=== PATIENT | female | born 1965 | race Caucasian/White ===

== ENCOUNTER 2016-12-19 15:38 | Observation (INO) ==
--- NOTE | 2016-12-19 15:51 | Emergency Department Note ---
Disposition Clinical Impression: Chest pain Disposition: Admitted As Inpatient General Adult HPI - General Chief complaint: ED Chest Pain Stated complaint: CP Time Seen by Provider: 12/19/16 15:48 Source: patient Limitations: no limitations - History of Present Illness Pain Scale: 10 - Related Data Home Medications Medication Instructions Recorded Confirmed Albuterol Sulfate [Proair Hfa] 2 puff IH Q4H PRN 12/19/16 12/19/16 Aspirin Enteric Coated [Aspirin EC] 81 mg PO DAILY 12/19/16 12/19/16 Fexofenadine HCl [Allergy Relief] 180 mg PO DAILY 12/19/16 12/19/16 Fluticasone Propionate Nasal 50 mcg NS DAILY 12/19/16 12/19/16 [Flonase] Fluticasone/Salmeterol [Advair Hfa 2 puff IH BID 12/19/16 12/19/16 230-21 Mcg Inhaler] Ipratropium/Albuterol Neb [Duoneb] 3 ml IH QID PRN 12/19/16 12/19/16 Montelukast [Singulair] 10 mg PO HS 12/19/16 12/19/16 Tiotropium [Spiriva] 18 mcg IH DAILY 12/19/16 12/19/16 Allergies Allergy/AdvReac Type Severity Reaction Status Date / Time No Known Allergies Allergy Verified 12/19/16 15:40 Past Medical History - Past Medical History Medical history: Reports: asthma - Social History Smoking Status: Never smoker Smokeless Tobacco Status: No Alcohol use: Reports: none Drug use: Reports: none Physical Exam - General Limitations: no limitations General appearance: alert, in no apparent distress Course Vital Signs Temperature 97.8 F 12/19/16 15:41 Pulse Rate 98 12/19/16 15:41 Respiratory Rate 18 12/19/16 15:41 Blood Pressure 131/88 12/19/16 15:41 O2 Sat by Pulse Oximetry 96 12/19/16 15:41 Temperature 97.9 F 12/21/16 04:54 Pulse Rate 89 12/21/16 04:54 Respiratory Rate 12 12/21/16 04:54 Blood Pressure 104/67 12/21/16 04:54 O2 Sat by Pulse Oximetry 96 12/21/16 04:54 Oxygen Delivery Oxygen Delivery Room Air Medical Decision Making - Lab Data Result diagrams: 12/20/16 03:37 12/20/16 03:37 Lab Results 12/19/16 12/19/16 12/19/16 Range/Units 16:05 16:05 16:05 WBC 7.3 (4.3-11.1) K/mcL RBC 5.40 H (3.82-4.97) M/mcL Hgb 14.4 (11.5-15.4) g/dL Hct 45.4 H (35.3-44.9) % MCV 84.1 (83.0-100.0) fL MCH 26.7 L (28.0-33.3) pg MCHC 31.7 (31.6-35.5) g/dL RDW 14.9 H (11.5-14.5) % Plt Count 543 H (140-400) K/mcL MPV 8.4 L (9.4-12.4) fL Immature Gran % 0.1 (0-4) % Seg Neutrophils % 59.7 % Lymphocytes % 28.5 % Monocytes % 7.9 % Eosinophils % 2.7 % Basophils % 1.1 % Neutrophils # 4.4 (1.6-8.9) K/mcL Lymphocytes # 2.1 (0.6-4.6) K/mcL Monocytes # 0.6 (0.0-1.3) K/mcL Eosinophils # 0.2 (0.0-0.6) K/mcL Basophils # 0.1 (0.0-0.2) K/mcL D-Dimer (0-500) ng/mLFEU Sodium 137 (136-145) mEq/L Potassium 3.3 L (3.5-4.5) mEq/L Chloride 102 (98-109) mEq/L Carbon Dioxide 25 (19-29) mEq/L BUN 11 (7-20) mg/dL Creatinine 0.83 (0.57-1.11) mg/dL Est GFR ( Amer) > 60 (> 60) Est GFR (Non-Af Amer) > 60 (> 60) BUN/Creatinine Ratio 13 (6-26) Glucose 147 H (70-99) mg/dL Calculated Osmolality 286 (280-300) Calcium 9.4 (8.6-10.8) mg/dL Troponin I 0.00 (0-0.03) ng/mL 12/19/16 Range/Units 17:35 WBC (4.3-11.1) K/mcL RBC (3.82-4.97) M/mcL Hgb (11.5-15.4) g/dL Hct (35.3-44.9) % MCV (83.0-100.0) fL MCH (28.0-33.3) pg MCHC (31.6-35.5) g/dL RDW (11.5-14.5) % Plt Count (140-400) K/mcL MPV (9.4-12.4) fL Immature Gran % (0-4) % Seg Neutrophils % % Lymphocytes % % Monocytes % % Eosinophils % % Basophils % % Neutrophils # (1.6-8.9) K/mcL Lymphocytes # (0.6-4.6) K/mcL Monocytes # (0.0-1.3) K/mcL Eosinophils # (0.0-0.6) K/mcL Basophils # (0.0-0.2) K/mcL D-Dimer 356 (0-500) ng/mLFEU Sodium (136-145) mEq/L Potassium (3.5-4.5) mEq/L Chloride (98-109) mEq/L Carbon Dioxide (19-29) mEq/L BUN (7-20) mg/dL Creatinine (0.57-1.11) mg/dL Est GFR ( Amer) (> 60) Est GFR (Non-Af Amer) (> 60) BUN/Creatinine Ratio (6-26) Glucose (70-99) mg/dL Calculated Osmolality (280-300) Calcium (8.6-10.8) mg/dL Troponin I (0-0.03) ng/mL Attestation Statement - Attestation Attestation: I examined this patient and my medical decision-making was reviewed with the [employer]/PA/Advanced Practice Nurse/Resident Physician. I agree with the documented findings, disposition and treatment plan as described except to the extent set forth below. [id number] time provided in conjunction with Dr. Tanner, resident physician Patient complains of chest discomfort and dyspnea. Symptoms started after exposure to an hospital cleaning material. She has a history of reactive airway disease. Is teary and anxious at the time of my exam
[2016-12-19] MEDS ORDERED: Nitroglycerin 0.4 MG TAB.SUBL SL ONE (15:52)
[2016-12-19] MEDS ORDERED: Aspirin 81 MG TAB.CHEW PO ONE (15:52)
[2016-12-19] MEDS ORDERED: Ipratropium/Albuterol Neb 3 ML IH ONE (15:56)
--- NOTE | 2016-12-19 15:59 | Emergency Department Note ---
Disposition Clinical Impression: Chest pain Qualifiers: Chest pain type: unspecified Qualified Code(s): R07.9 - Chest pain, unspecified Disposition: Admitted As Inpatient Referrals: Mikayla Curran CNP [Primary Care Provider] - Forms: ED Satisfaction Letter Time of Disposition: 17:58 General Adult HPI - General Chief complaint: ED Chest Pain Stated complaint: CP Time Seen by Provider: 12/19/16 15:48 Source: patient Limitations: no limitations Nursing Notes Reviewed: Yes Vital Signs Reviewed: Yes - History of Present Illness HPI Narrative: Female patient with a history of reactive airway disease was in her mother's room upstairs and gotten cleaning with bleach. She states she started having shortness of breath and coughing. She has also has associated left-sided chest pain. States she has never had chest pain with her asthma attacks before. She describes the pain as a sudden onset left-sided chest radiates up her left neck and down to her left arm. She has no cardiac history and has had a cardiac workup several years ago. She denies nausea associate with this. She is comes the pain as an ache. Pain Scale: 10 - Related Data Home Medications Medication Instructions Recorded Confirmed Albuterol Sulfate [Proair Hfa] 2 puff IH Q4H PRN 12/19/16 12/19/16 Aspirin Enteric Coated [Aspirin EC] 81 mg PO DAILY 12/19/16 12/19/16 Fexofenadine HCl [Allergy Relief] 180 mg PO DAILY 12/19/16 12/19/16 Fluticasone Propionate Nasal 50 mcg NS DAILY 12/19/16 12/19/16 [Flonase] Fluticasone/Salmeterol [Advair Hfa 2 puff IH BID 12/19/16 12/19/16 230-21 Mcg Inhaler] Ipratropium/Albuterol Neb [Duoneb] 3 ml IH QID PRN 12/19/16 12/19/16 Montelukast [Singulair] 10 mg PO HS 12/19/16 12/19/16 Tiotropium [Spiriva] 18 mcg IH DAILY 12/19/16 12/19/16 Allergies Allergy/AdvReac Type Severity Reaction Status Date / Time No Known Allergies Allergy Verified 12/19/16 15:40 All systems ED: reviewed and negative except as stated. Constitutional: Denies: fever, chills Cardiovascular: Reports: chest pain. Denies: palpitations, edema, syncope Respiratory: Reports: cough, dyspnea, wheezes Gastrointestinal: Denies: abdominal pain, nausea, vomiting, diarrhea Genitourinary: Denies: urgency, dysuria, frequency, hematuria Musculoskeletal: Denies: back pain, neck pain Integumentary: Denies: rash, abrasion Neurological: Denies: headache, weakness Past Medical History - Past Medical History Medical history: Reports: asthma - Social History Smoking Status: Never smoker Smokeless Tobacco Status: No Alcohol use: Reports: none Drug use: Reports: none Physical Exam - General Limitations: no limitations General appearance: alert, in distress (Clutching her chest and coughing) - Head Head exam: atraumatic, normocephalic - Eye Eye exam: Present: normal appearance, PERRL, EOMI - ENT ENT exam: normal exam, normal oropharynx, mucous membranes moist - Neck Neck exam: Present: normal inspection, full ROM, trachea midline - Chest Chest inspection: Present: normal inspection, symmetric chest wall rise - Respiratory Respiratory exam: Present: respiratory distress, wheezes (diffusly), accessory muscle use - Cardiovascular Cardiovascular exam: Present: regular rate, normal rhythm, normal heart sounds - Abdominal Exam Abdominal exam: Present: soft, Non-Tender, normal bowel sounds - Extremities Exam Extremities exam: Present: normal inspection, full ROM, normal capillary refill. Absent: tenderness, pedal edema - Back Exam Back exam: Present: normal inspection, full ROM. Absent: tenderness - Neurological Exam Neurological exam: Present: alert, oriented X3 - Psychiatric Psychiatric exam: Present: normal affect, normal mood - Skin Skin exam: Present: warm, dry, intact, normal color. Absent: cyanosis, diaphoresis Course Course Narrative: Female patient presenting to the emergency department in a wheelchair. She states she was upstairs visiting her mother when they clean the room with the bleach substances. She states is aggravated her reactive airway disease and cause her to start coughing and had shortness of breath. He eats that she then started having chest pain. She said she has never had chest pain with her asthma attacks before. She attempted to use her albuterol inhalers with no relief. His scrubs the pain as a pain in the left side of her chest that radiates up into her neck and down into her left arm. She has no previous cardiac history. She did have a cardiac workup several years ago. Patient appears in moderate respiratory distress at this time and is coughing. She is also holding her chest at this time. We will do a cardiac workup and give the patient a DuoNeb and reassess. - Reevaluation(s) Reevaluation #1: Patient getting her breathing treatment at this time. She states that the nitroglycerin did ease her chest pain some. She describes an [employer] a heaviness and a funny feeling. We will provide her with more pain medication at this time. Time: 16:29 Reevaluation #2: Pt resting in bed at this time. He does not appear in any distress but is still holding the left side of her chest. She states her breathing difficulty has eased at this time however she states that she is still having chest pain in the left side of her chest. SHe is refusing Additional pain medication that has been offered. Discussed with her that her lab work is unremarkable at this time that we will need an additional in 3 hours. She is requesting admission for cardiac workup. I feel this is reasonable. She used to be a smoker and has a cardiac history in her family however she has never had a cardiac event before. Time: 17:17 Reevaluation #3: Patient's d-dimer is negative. We will admit patient. Time: 17:50 - Consultations Consultation #1: Spoke with Dr Keenan the hospitalist. She is requesting the Pt be worked up for a PE prior to admission. Time: 17:34 Consultation #2: Dr Keenan accepted Pt in stable condition. Time: 17:56 Vital Signs Temperature 97.8 F 12/19/16 15:41 Pulse Rate 98 12/19/16 15:41 Respiratory Rate 18 12/19/16 15:41 Blood Pressure 131/88 12/19/16 15:41 O2 Sat by Pulse Oximetry 96 12/19/16 15:41 Temperature 97.8 F 12/19/16 15:41 Pulse Rate 96 12/19/16 16:53 Respiratory Rate 14 12/19/16 16:53 Blood Pressure 110/76 12/19/16 16:53 O2 Sat by Pulse Oximetry 94 12/19/16 16:53 Oxygen Delivery Oxygen Delivery Room Air Medical Decision Making - Medical Records Medical records reviewed: Yes I reviewed the patient's medical records. - Lab Data Lab results reviewed: Yes I reviewed the patient's lab results. Result diagrams: 12/19/16 16:05 12/19/16 16:05 Lab Results 12/19/16 12/19/16 12/19/16 Range/Units 16:05 16:05 16:05 WBC 7.3 (4.3-11.1) K/mcL RBC 5.40 H (3.82-4.97) M/mcL Hgb 14.4 (11.5-15.4) g/dL Hct 45.4 H (35.3-44.9) % MCV 84.1 (83.0-100.0) fL MCH 26.7 L (28.0-33.3) pg MCHC 31.7 (31.6-35.5) g/dL RDW 14.9 H (11.5-14.5) % Plt Count 543 H (140-400) K/mcL MPV 8.4 L (9.4-12.4) fL Immature Gran % 0.1 (0-4) % Seg Neutrophils % 59.7 % Lymphocytes % 28.5 % Monocytes % 7.9 % Eosinophils % 2.7 % Basophils % 1.1 % Neutrophils # 4.4 (1.6-8.9) K/mcL Lymphocytes # 2.1 (0.6-4.6) K/mcL Monocytes # 0.6 (0.0-1.3) K/mcL Eosinophils # 0.2 (0.0-0.6) K/mcL Basophils # 0.1 (0.0-0.2) K/mcL Sodium 137 (136-145) mEq/L Potassium 3.3 L (3.5-4.5) mEq/L Chloride 102 (98-109) mEq/L Carbon Dioxide 25 (19-29) mEq/L BUN 11 (7-20) mg/dL Creatinine 0.83 (0.57-1.11) mg/dL Est GFR ( Amer) > 60 (> 60) Est GFR (Non-Af Amer) > 60 (> 60) BUN/Creatinine Ratio 13 (6-26) Glucose 147 H (70-99) mg/dL Calculated Osmolality 286 (280-300) Calcium 9.4 (8.6-10.8) mg/dL Troponin I 0.00 (0-0.03) ng/mL - Radiology Data Radiology results reviewed: Yes I reviewed the patient's radiology results. - EKG Data EKG #1 EKG attestation: Yes I reviewed and interpreted this EKG. EKG results narrative: sinus rhythm with sinus arrhythmia at a rate of 94. Interval is 123. Respirations 24. QT is 353. QTC is 405. No significant changes from previous EKG dated 03/17/2016. Heart Score - Score History: Moderately Suspicious EKG: Normal Age: 45-65 Risk Factors: 1-2 risk factors Troponin: Less than normal limit HEART Score Total: 3
[2016-12-19 16:13] LABS: Basophils # 0.1 K/mcL (0.0-0.2); Basophils % 1.1 %; Eosinophils # 0.2 K/mcL (0.0-0.6); Eosinophils % 2.7 %; Hematocrit 45.4 % (35.3-44.9); Hemoglobin 14.4 g/dL (11.5-15.4); Immature Granulocytes % 0.1 % (0-4); Lymphocytes # 2.1 K/mcL (0.6-4.6); Lymphocytes % 28.5 %; Mean Corpuscular HGB Conc 31.7 g/dL (31.6-35.5); Mean Corpuscular Hemoglobin 26.7 pg (28.0-33.3); Mean Corpuscular Volume 84.1 fL (83.0-100.0); Mean Platelet Volume 8.4 fL (9.4-12.4); Monocytes # 0.6 K/mcL (0.0-1.3); Monocytes % 7.9 %; Neutrophils # 4.4 K/mcL (1.6-8.9); Platelet Count 543 K/mcL (140-400); Red Cell Distribution Width 14.9 % (11.5-14.5); Segmented Neutrophils % 59.7 %
[2016-12-19] MEDS ORDERED: methylPREDNISolone 125 MG/2 ML VIAL IVP ONE (16:26)
[2016-12-19] MEDS ORDERED: *HR* FentaNYL (PF) 100 MCG/2 ML VIAL IVP ONE (16:28)
[2016-12-19 16:32] LABS: BUN/Creatinine Ratio 13 (6-26); Blood Urea Nitrogen 11 mg/dL (7-20); Calcium 9.4 mg/dL (8.6-10.8); Carbon Dioxide 25 mEq/L (19-29); Chloride 102 mEq/L (98-109); Glucose 147 mg/dL (70-99); Osmolality,Calculated 286 (280-300); Potassium 3.3 mEq/L (3.5-4.5); Sodium 137 mEq/L (136-145); eGFR For African Americans > 60 (> 60); eGFR For Non-African Americans > 60 (> 60)
[2016-12-19] MEDS ORDERED: Pantoprazole 40 MG VIAL IVP STA (20:43)
[2016-12-19] MEDS ORDERED: *HR* Morphine 2 MG/ML SYRINGE IVP PRN (20:43)
[2016-12-19] MEDS ORDERED: Nicotine 21 MG PATCH.TD24 TD PRN (20:43)
[2016-12-19] MEDS ORDERED: *HR* OxyCODONE Immed Rel 5 MG TABLET PO PRN (20:43)
[2016-12-19] MEDS ORDERED: *HR* Promethazine 25 MG/ML VIAL IVP PRN (20:43)
[2016-12-19] MEDS ORDERED: Albuterol 2.5 MG/3 ML NEBULIZER IH PRN (20:43)
[2016-12-19] MEDS ORDERED: Naloxone 0.4 MG/ML INJ IVP PRN (20:43)
[2016-12-19] MEDS ORDERED: *HR* Metoprolol 5 MG/5 ML VIAL IVP PRN (21:13)
[2016-12-19] MEDS ORDERED: Potassium Chloride Elixir 20 MEQ/15 ML UDC PO ONE (21:17)
--- NOTE | 2016-12-19 21:27 | Internal Med History&Physical ---
Date of Encounter: 12/20/16 Time of Encounter: 21:00 Assessment and Plan (1) Asthma exacerbation in COPD Status: Chronic . (2) Chest pain Status: Acute . Qualifiers: Chest pain type: unspecified Qualified Code(s): R07.9 - Chest pain, unspecified Internal Medicine - H&P: HPI Chief complaint: Difficulty breathing. Chest pain. Admitted From: Emergency Dept Plans for Post Hospital Care: Home History of present illness: Ms. Betsy Mcallister is a 51 year old female with history significant for stage III RAD/asthma, COPD/bronchitis, allergic sinorhinitis, former smoker, etc.. Patient was admitted via the emergency department to [facility] where she presented with complaints of severe chest pain associated with difficulty breathing. Patient carries a history of moderate to severe reactive airway disease. She was at her baseline prior to the onset of current symptoms. Was visiting her mother currently hospitalized within the facility when she came in contact with the odor/fumes oblique lie cleansing solution used to prior to arrival and cleaning hospital room. She became short of breath as stated with feelings of coughing followed by a feeling of loss central and left chest discomfort aggravated with respirations and cough. She reports never recalling experiencing chest pain associated with Asthma Attacks in the past. Reportedly Revealed Left-Sided Chest Pain As Being Acute in Onset Radiating to the Left Neck and down Her Left Arm. This Was Not Associated with Any Nausea or Vomiting. She Rated Her Pain When Most Severe at a 9-10/10. The pain did seem to be modified by sublingual nitroglycerin which lessened in severity but did not resolve it completely. She denied any prodromal complaints of fevers chills or sweats. He acknowledges nonproductive cough associated with dyspnea and audible wheezes. She attempted to use her rescue inhaler. Experienced no relief of her symptoms. Vital signs at presentation were benign. Mild increase in respiratory rate was apparent at 18 versus baseline at 14. O2 saturation 94-96% at room air. WBC 7.3 hemoglobin 14.4. RDW 14.9. Platelets 543,000. MPV 8.4. Differential normal. Basic metabolic panel normal except potassium of 3.3. Glucose 147 with osmolality 286. Ddimer within normal limits. BUN and creatinine normal at 11 and 0.83. Troponin 0.00. EKG sinus rhythm with rate of 94. No acute ischemic changes. Preliminary impressions suggest acute (atypical) chest pain syndrome with respiratory variation. Presentation associated with acute exacerbation of chronic stage III reactive airway disease with bronchospasm. This is reported to have occurred following environmental exposure to noxious fumes arrived as a cleansing solution used to clean hospital room that patient visit. Chest pain was reported to be severe retrosternal left-sided radiating into left neck and arm and subjectively responsive to sublingual nitroglycerin. She will screening studies are nondiagnostic for ischemic events. Completion of standard ACS/UA rule out protocols to proceed. She presents at low risk for major acute coronary event. Workup and treatments will proceed comprehensively. The patient was visited and interviewed and examined. Cumulative laboratory and radiographic data base will be considered and discussed. Pertinent ancillary medical records including ECW and PCI documentation when available was reviewed and considered. Given the patient's presenting concerns, past medical history, clinical findings and symptoms, she is admitted at this time will undergo further evaluation and disposition. Orders were written as per the computerized physician work order clerk system.......................................................................... .................... Consultative opinions will be sought as clinical circumstances justify. Pain management needs will be addressed. Laboratory+radiographic data base will be updated as appropriate. Studies include: ddimer, pt/inr, aptt, CPK, cardiac injury panel, BNP, metabolic and hematologic panel, magnesium, phosphorus, ionized calcium, thyroid panel, lipid profile, A1c, C-peptide, CRP, sedimentation rate, blood gas, lactic acid, serologies, etc. Precautions: Aspiration, fall, delirium protocol/surveillance initiated. Telemetry with continuous hemodynamic monitoring and pulse oximetry initiated. Empiric antibiotic coverage: pending diagnostic/culture data. Special studies: CT/CTA chest, chest x-ray, telemetry, EKG, 2D echo. Pulmonary toilet: Incentive spirometry, aerosol bronchodilator, mucolytic, antitussive, supplemental oxygen. Corticosteroid therapy. CPAP/BiPAP supplemental oxygen delivery. Aerosol Mucomyst therapy. Fluid and electrolyte repletion efforts will proceed. Careful attention to fluid balance and renal recovery will be emphasized. Avoidance of nephrotoxic exposure and adverse drug drug interaction in the setting of impaired renal function will be monitored closely. Acute coronary syndrome protocol/surveillance initiated. Beta la nena aspirin and statin. LELE inhibitor. Nitrates. Morphine. Supplemental oxygen. Lovenox. DVT and PUD prophylaxis initiated: PPI therapy, intermittent pneumatic cuffs. Subcutaneous heparin/Lovenox. Early ambulation will be encouraged. Immunization updates recommended. Influenza and pneumococcal vaccinations as part of ongoing preventative healthcare recommendations strongly recommended. Smoking cessation counseling briefly addressed. Patient is a former smoker. Advanced care directive discussion briefly addressed. Patient does not declare any healthcare restrictions at this time. Cardiovascular risk appraisal and cardiovascular risk reduction efforts will be emphasized. Physical+occupational therapy may be counseled to evaluate patient's functional capacity and progressive mobility if circumstances justify. Nutrition/dietary education+counseling may be considered as circumstances justify. Outpatient medication schedules will be reviewed, confirmed and facilitated as appropriate. Reconciliation of home treatments including adjustments, substitutions and reintroduction into the treatment regimen will address necessary maintenance therapies for chronic pre-existing medical conditions. Plan of care has been reviewed and discussed in detail with the patient. Questions addressed. Hospital course dictated by clinical findings, treatment response and potential consultative interventions. Patient is at risk for further acute clinical decline due to her presenting chief complaints and comorbid conditions. Condition is serious. Prognosis is guarded CODE STATUS is full. Past Med Surg Social Fam HX - Past Medical History Source: old records reviewed Medical history: asthma, COPD, other Psychiatric history: other - Past Surgical History Surgical History: non-contributory, other - Social History Smoking Status: Former smoker Smokeless Tobacco Status: No Alcohol use: none, unknown Drug use: none, unknown Occupational status: employed Current living situation: Home, With Family Activity Level: Independent ambulation, Mostly sedentary Recent Out of Country Travel Within the Last 8 Weeks: No Exposure or Possible Exposure to Illness During Travel: No - Family History Mother Hx Family Cardiac Disorders: Yes (CHF) Hx Family Respiratory Disorders: Yes (COPD) Hx Family Endocrine Disorder: Yes Hx Family Neuromuscular Disorders: Yes (STROKE) Father Hx Family Cardiac Disorders: Yes Hx Family Neurologic Disorders: Yes (STROKE) Internal Medicine - H&P: Meds Albuterol Sulfate [Proair Hfa] 2 puff IH Q4H PRN 12/19/16 [History] Aspirin Enteric Coated [Aspirin EC] 81 mg PO DAILY 12/19/16 [History] Fexofenadine HCl [Allergy Relief] 180 mg PO DAILY 12/19/16 [History] Fluticasone Propionate Nasal [Flonase] 50 mcg NS DAILY 12/19/16 [History] Fluticasone/Salmeterol [Advair Hfa 230-21 Mcg Inhaler] 2 puff IH BID 12/19/16 [ History] Montelukast [Singulair] 10 mg PO HS 12/19/16 [History] Tiotropium [Spiriva] 18 mcg IH DAILY 12/19/16 [History] Albuterol Neb [Proventil Neb] 2.5 mg IH Q4H PRN #30 inhsol 12/21/16 [Rx] Ipratropium/Albuterol Neb [Duoneb] 3 ml IH QID PRN #64 inhsol 12/21/16 [Rx] Levofloxacin [Levaquin] 500 mg PO DAILY #10 tablet 12/21/16 [Rx] Nicotine Patch [Nicoderm] 21 mg TD DAILY PRN #30 patch.td24 12/21/16 [Rx] PredniSONE 10 mg PO DAILY #31 tablet 12/21/16 [Rx] Allergies No Known Allergies Allergy (Verified 12/19/16 15:40) All Systems PM: A 10-system review of systems was performed and is negative for pertinent findings except as documented above in the HPI. - Constitutional Constitutional: malaise, no chills, no fever(s), no night sweats - EENT Eyes: as per HPI, no change in vision, no discharge, no pain, no photophobia Ears: as per HPI, no ear discharge, no ear pain, no tinnitus Nose, mouth and throat: as per HPI, nasal congestion, post-nasal drip, sinus pressure, no dysphagia, no nasal discharge, no neck pain, no sore throat - Cardiovascular Cardiovascular ROS IM: as per HPI, chest pain, dyspnea, no diaphoresis, no lightheadedness, no orthopnea, no palpitations, no paroxysmal nocturnal dyspnea , no syncope - Respiratory Respiratory: as per HPI, cough, dyspnea, dyspnea on exertion, wheezing, pain on inspiration, chest congestion, pain with cough, other, no excessive phlegm production - Gastrointestinal Gastrointestinal: as per HPI, no abdominal pain, no diarrhea, no hematemesis, no hematochezia, no melena, no nausea, no vomiting - Genitourinary Genitourinary: as per HPI, no change in urinary stream, no dysuria, no flank pain, no hematuria - Musculoskeletal Musculoskeletal ROS IM: as per HPI, no numbness, no tingling - Integumentary Integumentary IM: as per HPI, no rash, no unusual bruising - Neurological Neurological ROS: as per HPI, no confusion, no convulsions, no focal weakness, no numbness, no tingling, no tremor(s) - Psychiatric Psychiatric: as per HPI - Endocrine Endocrine IM: as per HPI - Hematologic/Lymphatic Hematologic/Lymphatic: as per HPI, no easy bruising - Allergic/Immunologic Allergic/Immunologic: as per HPI - Constitutional Vitals: Temp Pulse Resp BP Pulse Ox 97.7 F 76 16 128/75 95 12/19/16 19:04 12/19/16 19:04 12/19/16 19:04 12/19/16 19:04 12/19/16 19:04 Vital Signs Temp Pulse Resp BP Pulse Ox 12/19/16 19:04 97.7 F 76 16 128/75 95 12/19/16 18:32 16 110/76 12/19/16 16:53 96 14 110/76 94 12/19/16 16:19 18 97 12/19/16 16:13 105 16 138/95 97 12/19/16 15:41 97.8 F 98 18 131/88 96 Intake and Output 12/19/16 12/19/16 12/19/16 07:59 15:59 23:59 Other: Weight 87.543 kg 87.543 kg Patient Weight 12/19/16 23:59 Weight 87.543 kg General appearance: Present: mild distress, A&O X 3, obese, answers questions appropriately - Head Head exam: Present: atraumatic, normocephalic - Eye Eye exam: Present: EOMI, PERRL, conjuntiva pink, sclera anicteric Pupils: Present: normal accommodation, PERRL - ENT ENT exam: Present: mucous membranes moist, normal oropharynx - Neck Neck exam general surgery: Present: full ROM, supple, trachea midline. Absent: lymphadenopathy - Respiratory Respiratory exam: Present: accessory muscle use, chest wall tenderness, decreased breath sounds, rhonchi, wheezes, tachypnea. Absent: CTAB, rales, stridor - Cardiovascular Cardiovascular exam: Present: distant heart sounds, RRR, +S1, +S2. Absent: diastolic murmur, gallop, rubs, systolic murmur - GI/Abdominal GI/Abdominal exam: Present: diminished bowel sounds, normal bowel sounds, soft, no peritoneal signs. Absent: distended, tenderness - Extremities Exam Extremities exam: Present: full ROM, warm, radial pulses palpable and symetrical. Absent: calf tenderness, cyanotic, pedal edema - Neurological Exam Neurological exam: Present: alert, CN II-XII intact, oriented X3, no focal deficits. Absent: pronater drift, facial droop, speech deficit - Psychiatric Psychiatric exam: Present: anxious, normal affect, normal mood - Skin Skin exam: Present: dry, intact, warm Internal Med - H&P Results - Labs CBC & Chem 7: 12/21/16 05:19 12/21/16 05:19 Labs: Short CBC 12/19/16 Range/Units 16:05 WBC 7.3 (4.3-11.1) K/mcL Hgb 14.4 (11.5-15.4) g/dL Hct 45.4 H (35.3-44.9) % Plt Count 543 H (140-400) K/mcL Neutrophils # 4.4 (1.6-8.9) K/mcL BMP 12/19/16 Range/Units 16:05 Sodium 137 (136-145) mEq/L Potassium 3.3 L (3.5-4.5) mEq/L Chloride 102 (98-109) mEq/L Carbon Dioxide 25 (19-29) mEq/L BUN 11 (7-20) mg/dL Creatinine 0.83 (0.57-1.11) mg/dL Glucose 147 H (70-99) mg/dL Calcium 9.4 (8.6-10.8) mg/dL Cardiac Enzymes 12/19/16 Range/Units 16:05 Troponin I 0.00 (0-0.03) ng/mL Abnormal lab results RBC 5.40 M/mcL (3.82-4.97) H 12/19/16 16:05 Hct 45.4 % (35.3-44.9) H 12/19/16 16:05 MCH 26.7 pg (28.0-33.3) L 12/19/16 16:05 RDW 14.9 % (11.5-14.5) H 12/19/16 16:05 Plt Count 543 K/mcL (140-400) H 12/19/16 16:05 MPV 8.4 fL (9.4-12.4) L 12/19/16 16:05 Potassium 3.3 mEq/L (3.5-4.5) L 12/19/16 16:05 Glucose 147 mg/dL (70-99) H 12/19/16 16:05 Laboratory Results WBC 7.3 K/mcL (4.3-11.1) 12/19/16 16:05 RBC 5.40 M/mcL (3.82-4.97) H 12/19/16 16:05 Hgb 14.4 g/dL (11.5-15.4) 12/19/16 16:05 Hct 45.4 % (35.3-44.9) H 12/19/16 16:05 MCV 84.1 fL (83.0-100.0) 12/19/16 16:05 MCH 26.7 pg (28.0-33.3) L 12/19/16 16:05 MCHC 31.7 g/dL (31.6-35.5) 12/19/16 16:05 RDW 14.9 % (11.5-14.5) H 12/19/16 16:05 Plt Count 543 K/mcL (140-400) H 12/19/16 16:05 MPV 8.4 fL (9.4-12.4) L 12/19/16 16:05 Immature Gran % 0.1 % (0-4) 12/19/16 16:05 Seg Neutrophils % 59.7 % 12/19/16 16:05 Lymphocytes % 28.5 % 12/19/16 16:05 Monocytes % 7.9 % 12/19/16 16:05 Eosinophils % 2.7 % 12/19/16 16:05 Basophils % 1.1 % 12/19/16 16:05 Neutrophils # 4.4 K/mcL (1.6-8.9) 12/19/16 16:05 Lymphocytes # 2.1 K/mcL (0.6-4.6) 12/19/16 16:05 Monocytes # 0.6 K/mcL (0.0-1.3) 12/19/16 16:05 Eosinophils # 0.2 K/mcL (0.0-0.6) 12/19/16 16:05 Basophils # 0.1 K/mcL (0.0-0.2) 12/19/16 16:05 D-Dimer 356 ng/mLFEU (0-500) 12/19/16 17:35 Sodium 137 mEq/L (136-145) 12/19/16 16:05 Potassium 3.3 mEq/L (3.5-4.5) L 12/19/16 16:05 Chloride 102 mEq/L (98-109) 12/19/16 16:05 Carbon Dioxide 25 mEq/L (19-29) 12/19/16 16:05 BUN 11 mg/dL (7-20) 12/19/16 16:05 Creatinine 0.83 mg/dL (0.57-1.11) 12/19/16 16:05 Est GFR ( Amer) > 60 (> 60) 12/19/16 16:05 Est GFR (Non-Af Amer) > 60 (> 60) 12/19/16 16:05 BUN/Creatinine Ratio 13 (6-26) 12/19/16 16:05 Glucose 147 mg/dL (70-99) H 12/19/16 16:05 Calculated Osmolality 286 (280-300) 12/19/16 16:05 Calcium 9.4 mg/dL (8.6-10.8) 12/19/16 16:05 Troponin I 0.00 ng/mL (0-0.03) 12/19/16 16:05 Impressions Chest X-Ray 12/19/16 15:54 IMPRESSION: No acute findings in the chest. D/ / Apollo Heaton MD / Apollo Heaton MD Interpreting Provider: Apollo Heaton MD
[2016-12-19] MEDS: Acetaminophen 325 MG TABLET PO PRN (21:48)
[2016-12-19] MEDS: 0.9 % Sodium Chloride 1,000 ML IVC SCH (21:49)
[2016-12-19] MEDS: Ipratropium/Albuterol Neb 3 ML IH SCH (21:51)
[2016-12-19] MEDS: MethylPREDNISolone 40 MG/ML VIAL IVP SCH (23:10)
[2016-12-20 04:36] LABS: Hematocrit 43.3 % (35.3-44.9); Hemoglobin 13.8 g/dL (11.5-15.4); Mean Corpuscular HGB Conc 31.9 g/dL (31.6-35.5); Mean Corpuscular Hemoglobin 26.5 pg (28.0-33.3); Mean Corpuscular Volume 83.3 fL (83.0-100.0); Mean Platelet Volume 8.8 fL (9.4-12.4); Platelet Count 558 K/mcL (140-400); Red Cell Distribution Width 14.7 % (11.5-14.5)
[2016-12-20 04:39] LABS: INR 1.1; Prothrombin Time 11.6 Seconds (9.4-12.1)
[2016-12-20] MEDS: Ipratropium/Albuterol Neb 3 ML IH SCH ×4 (04:46→22:30)
[2016-12-20 04:47] LABS: Hemoglobin A1C 5.6 %
[2016-12-20 04:57] LABS: Alanine Aminotransferase 14 Units/L (0-55); Albumin 3.6 g/dL (3.5-5.0); Albumin/Globulin Ratio 0.9 (1.1-2.2); Alkaline Phosphatase 84 Units/L (38-126); Aspartate Amino Transferase 13 Units/L (5-34); BUN/Creatinine Ratio 13 (6-26); Bilirubin,Total 0.4 mg/dL (0.2-1.2); Blood Urea Nitrogen 10 mg/dL (7-20); Calcium 9.3 mg/dL (8.6-10.8); Carbon Dioxide 21 mEq/L (19-29); Chloride 107 mEq/L (98-109); Chol/HDL Ratio 2.6 (0-4.9); Cholesterol 159 mg/dL (< 200); Globulin 4.1 g/dL (2.4-3.5); Glucose 202 mg/dL (70-99); HDL Cholesterol 62 mg/dL (40-59); LDL Cholesterol,Calculated 92 mg/dL (0-99); Magnesium 2.1 mg/dL (1.6-2.6); Osmolality,Calculated 289 (280-300); Phosphorous 1.8 mg/dL (2.3-4.7); Potassium 4.2 mEq/L (3.5-4.5); Sodium 137 mEq/L (136-145); Total Protein 7.7 g/dL (6.0-8.3); Triglycerides 25 mg/dL (< 150); eGFR For African Americans > 60 (> 60); eGFR For Non-African Americans > 60 (> 60)
[2016-12-20 05:09] LABS: Thyroid Stimulating Hormone 0.524 mcIU/mL (0.350-4.840)
[2016-12-20] MEDS: MethylPREDNISolone 40 MG/ML VIAL IVP SCH ×3 (05:16→18:05)
[2016-12-20 09:14] LABS: Bilirubin,Urine Negative (Negative); Blood,Urine Negative (Negative); Clarity,Urine Clear (Clear); Color,Urine Yellow (Yellow); Glucose,Urine (UA) >=1000 mg/dL (Normal); Ketones,Urine Negative (Negative); Leukocyte Esterase,Urine Negative (Negative); Nitrite,Urine Negative (Negative); Protein,Urine Negative (Neg-Trace); Specific Gravity,Urine 1.018 (1.010-1.025); Urobilinogen,Urine Normal (Normal)
[2016-12-20] MEDS: Loratadine 10 MG TABLET PO SCH (11:01)
[2016-12-20] MEDS: Aspirin Enteric Coated 81 MG Tablet PO SCH (11:01)
[2016-12-20] MEDS: Famotidine 20 MG TABLET PO SCH ×2 (11:01→15:19)
[2016-12-20] MEDS: Fluticasone Propionate Nasal 50 MCG/SPRAY BOTTLE NS SCH (11:05)
--- NOTE | 2016-12-20 12:21 | ECHO - Doppler Report ---
Echocardiogram Name: Fidelia Mcallister Date of Study: 12/20/2016 Date: 1965 Ht: 64.0 in Medical Record#: [id number] Age: 51 Wt: 195.0 lb Gender: Female BSA: 1.94 Order #: [id number] Location: [facility] Room #: [facility] Reading Physician: Chavez Bruner DO, FACC, IRENE Collar Stitcher: JAYDON BaldwinT, RD Ordering Physician: Maury Duarte MD Primary Physician: Mikayla Curran CNP Indications: ACS Impressions: LVEF 60-65%. Normal LV chamber size, wall thickness and function. Mild left ventricular diastolic dysfunction. Normal right ventricular structure and function. No evidence of pulmonary hypertension. No significant valvular dysfunction. Left Ventricular Wall Motion: Rest Echo Findings All wall segments showed normal motion. Findings: Study Quality * Technically sub-optimal due to poor echocardiographic windows. ECG Findings * Normal sinus rhythm. Left Ventricle * LVEF 60-65%. * Normal LV chamber size, wall thickness and function. * Mild left ventricular diastolic dysfunction. Right Ventricle * Normal right ventricular structure and function. Left Atrium * Normal left atrial size. Right Atrium * Normal right atrial size. Interatrial Septum * Interatrial septum not well evaluated. Aortic Valve * Aortic valve not well visualized. * No aortic regurgitation. * No aortic stenosis. Mitral Valve * Normal mitral valve structure and function. * Trace mitral regurgitation. * No mitral stenosis. Tricuspid Valve * Normal tricuspid valve structure and function. * Trace tricuspid regurgitation. * No evidence of pulmonary hypertension. Pulmonic Valve * Pulmonic valve is not well visualized. * No pulmonic regurgitation. Aorta * Normally sized aortic root. Pericardium * The pericardium appears normal. IVC * Normal IVC dimensions and inspiratory collapse. Pulmonary Artery * Normal visualized portions of the main pulmonary artery. History Family History of CAD Measurements: BP: 103/ 70 2D Normal Values RVIDd: 3.40 cm <2.7 cm IVSd: .90 cm 0.6 - 1.0 cm LVIDd: 4.50 cm 3.7 - 5.6 cm LVPWd: .80 cm 0.6 - 1.1 cm LVIDs: 2.50 cm 1.5 - 3.6 cm AO: 2.60 cm < 4.0 cm LA: 4.10 cm 2.0 - 4.0cm %FS: 44.40 cm >25 % LA volume: 37 Mitral Valve Dec Time:257.00 msec Peak E:.80 m/sec Peak A:1.01 m/sec E/A Ratio:0.8 Peak E' Lat Jimmy:8.58 cm/s Peak E' Med Jimmy:7.58 cm/s E/E' Lat Ratio:9.3 E/E' Med Ratio:10.5 Tricuspid Valve TV Regurg Peak Grad: 20.00mmHg TV Regurg Peak Jimmy: 2.25m/sec Updated by Chavez Bruner DO, EVETTE, IRENE, DEE on 12/20/2016 12:14:16 PM electronically signed on 12/20/2016 12:15:23 PM with status of Final Wall Motion [place]: 1=Normal, 2=Hypokinesis, 3=Akinesis, 4=Dyskinesis, 5=Aneurysmal, 6=Hyperkinetic, X=Not Visualized (Blank)=Missing
[2016-12-20] MEDS: Acetaminophen 325 MG TABLET PO PRN (13:25)
--- NOTE | 2016-12-20 15:49 | Internal Med Progress Note ---
Date of Encounter: 12/20/16 Time of Encounter: 10:00 - Assessment and plan (1) Chest pain Current Visit: Yes Status: Acute Assessment and plan: Patient reports intermittent left chest pain since exacerbation reactive airway disease yesterday. She says she does report some chest burning. Primarily reports left mid chest squeezing, some sharp intermittent, with radiation into her left shoulder into left posterior neck, under the left arm that she describes as being similar to a muscle spasm, and some radiation into her back. She has never had these symptoms before with any other exacerbations. She does report diaphoresis with this pain and squeezing. She also reports shortness of breath with the pressure. She denies nausea. Chest pain was worse with movement and deep inspiration in the emergency department. Chest x-ray shows clear lungs, no finding of pleural effusion or pneumothorax. No obvious acute fracture. No acute findings in the chest. Echocardiogram showed LVEF of 60-65%. Normal LV chamber size, wall thickness and function. Mild diastolic dysfunction. Normal right ventricular structure and function, no evidence of pulmonary hypertension, and no significant valvular dysfunction. Continue telemetry Stress test ordered for morning NPO after midnight Pain control Monitor labs monitor vital signs and patient condition CT angiogram ordered Qualifiers: Chest pain type: unspecified Qualified Code(s): R07.9 - Chest pain, unspecified (2) Asthma exacerbation in COPD Current Visit: Yes Status: Acute Assessment and plan: Patient is continuing her normal home medications for COPD. She is also getting IV Solu-Medrol 40 mg twice a day. She is also getting duo nebs as needed. Oxygen saturation is about 91% as charted by nurses. Will add supplemental 02 to maintain sats > 92%. CTA chest ordered for low sats and chest pain. Continue to monitor pt and VS, 02 sat included Nebulizer treatments IV steroids. (3) Reactive airway disease Current Visit: Yes Status: Acute Assessment and plan: Pt has history of RAD since occupational exposure to chlorine gas. Initial diagnosis approximately 5 years ago. This episode was triggered by exposure to bleach barrel loader and cleaner while visiting family member in hospital yesterday. Patient has never experienced chest pain with any exacerbation of RAD in the past. Plan as above Qualifiers: Asthma severity: unspecified severity Asthma complication type: with acute exacerbation Qualified Code(s): J45.901 - Unspecified asthma with (acute) exacerbation (4) DVT prophylaxis Current Visit: Yes Status: Acute Assessment and plan: Compression hose. Patient is able to ambulate. - Time Spent With Patient less than 15 minutes - Subjective Interval history: Patient states that she was visiting her mother in the hospital yesterday and began having shortness of breath and chest tightness after exposure to cleaning with bleach in the next from the hospital. She states that she feels better today but still has some burning in her chest. She reports chest pain that she has never had before with any of her RAD exacerbations. She describes it as a left mid chest squeezing with some intermittent left sharp pains. She says they radiate up her chest into her left lateral and posterior neck and into her back. She says they also radiate from her axilla under her arm to her elbow and she describes this as a muscle spasm. All of this is intermittent, and she normally rates it about a 6 or 7 out of 10. She does get diaphoretic with this and short of breath, but she denies nausea. Her lungs are clear diminished. She is being treated with IV steroids and nebulizer treatments. She had echocardiogram today that was negative with ejection fraction of 60-65%. She has mild diastolic dysfunction. Due to the continued chest pain that is atypical not only presentation but for her, I have ordered a CT angiogram chest to rule out PE and also stress test for the morning. - Constitutional Vitals: Temp Pulse Resp BP Pulse Ox 98.0 F 87 16 147/81 91 12/20/16 15:06 12/20/16 15:06 12/20/16 15:25 12/20/16 15:06 12/20/16 15:25 General appearance: Present: cooperative, mild distress, A&O X 3, pleasant, no acute distress, obese, answers questions appropriately - Head Head exam: Present: normal inspection - Eye Eye exam: Present: normal appearance, conjuntiva pink - ENT ENT exam: Present: mucous membranes moist, normal exam - Neck Neck exam general surgery: Present: normal inspection. Absent: lymphadenopathy , tenderness - Respiratory Respiratory exam: Present: decreased breath sounds, CTAB. Absent: rales, respiratory distress, rhonchi, stridor, wheezes, tachypnea - Cardiovascular Cardiovascular exam: Present: RRR, +S1, +S2. Absent: diastolic murmur, systolic murmur - GI/Abdominal GI/Abdominal exam: Present: normal bowel sounds, soft. Absent: distended, hepatomegaly, tenderness - Extremities Exam Extremities exam: Present: normal inspection, pedal edema, warm, radial pulses palpable and symetrical. Absent: tenderness - Neurological Exam Neurological exam: Present: alert, oriented X3, no focal deficits, strengths equal and symetr throughout. Absent: facial droop, speech deficit Internal Medicine: Result - Labs CBC & Chem 7: 12/20/16 03:37 12/20/16 03:37 Labs: Short CBC 12/20/16 Range/Units 03:37 WBC 5.8 (4.3-11.1) K/mcL Hgb 13.8 (11.5-15.4) g/dL Hct 43.3 (35.3-44.9) % Plt Count 558 H (140-400) K/mcL BMP 12/20/16 03:37 Sodium 137 Potassium 4.2 Chloride 107 Carbon Dioxide 21 BUN 10 Creatinine 0.75 Glucose 202 H Calcium 9.3 Cardiac Enzymes 12/19/16 12/20/16 12/20/16 Range/Units 21:08 03:37 10:05 Troponin I 0.00 0.00 0.00 (0-0.03) ng/mL Liver Function 12/20/16 Range/Units 03:37 Total Bilirubin 0.4 (0.2-1.2) mg/dL AST 13 (5-34) Units/L ALT 14 (0-55) Units/L Alkaline Phosphatase 84 (38-126) Units/L Albumin 3.6 (3.5-5.0) g/dL Urine 12/20/16 Range/Units 08:57 Urine Color Yellow (Yellow) Urine Clarity Clear (Clear) Urine pH 6.0 (5.0-8.0) pH Units Ur Specific [place] 1.018 (1.010-1.025) Urine Protein Negative (Neg-Trace) mg/dL Urine Glucose (UA) >=1000 H (Normal) mg/dL - ABG Interpretation ABG results: PT/INR, D-dimer PT 11.6 Seconds (9.4-12.1) 12/20/16 03:37 D-Dimer 356 ng/mLFEU (0-500) 12/19/16 17:35 - VTE Documentation of Mechanical Device: Graduated compression elastic hosiery Consult Discharge Plan - Plan Referrals: Mikayla Curran, ICT ANALYST [Primary Care Provider] -
[2016-12-20] MEDS ORDERED: Ketorolac 30 MG/ML VIAL IV ONE (17:14)
[2016-12-20] MEDS ORDERED: Prochlorperazine 10 MG/2 ML VIAL IVP PRN (17:16)
--- NOTE | 2016-12-20 18:19 | Electrocardiograph Report ---
[place] [id number] Test Date: 2016-12-19 Pat Name: Fidelia McallisterDepartment: 104 Room: 3B Gender: F [employer]: : 1965 Requested By: Liberty Tanner Order Number: [id number] Reading MD: Ankit Nava MD Measurements Intervals [place] Rate: 94 P: 19 SC: 123 QRS: 31 QRSD: 94 T: 30 QT: 353 QTc: 405 Interpretive Statements SINUS RHYTHM WITH SINUS ARRHYTHMIA Electronically Signed On 12-20-2016 18:18:14 EDT by Ankit Nava MD
--- NOTE | 2016-12-20 18:40 | Electrocardiograph Report ---
[place] [id number] Test Date: 2016-12-20 Pat Name: Fidelia McallisterDepartment: 113 Room: 3B Gender: F Cloth Calender: TONYA : 1965 Requested By: Maury Duarte Order Number: [id number] Reading MD: Ankit Nava MD Measurements Intervals [place] Rate: 68 P: 17 WI: 144 QRS: 6 QRSD: 100 T: 6 QT: 404 QTc: 420 Interpretive Statements SINUS RHYTHM WITH SINUS ARRHYTHMIA Electronically Signed On 12-20-2016 18:38:33 EDT by Ankit Nava MD
[2016-12-21] MEDS: 0.9 % Sodium Chloride 1,000 ML IVC SCH (00:26)
[2016-12-21] MEDS: MethylPREDNISolone 40 MG/ML VIAL IVP SCH ×2 (00:26→06:31)
[2016-12-21] MEDS: Ipratropium/Albuterol Neb 3 ML IH SCH ×2 (04:19→10:48)
[2016-12-21] MEDS ORDERED: Regadenoson 0.4 MG/5 ML SYRINGE IVP ONE (06:18)
[2016-12-21 07:14] LABS: BUN/Creatinine Ratio 21 (6-26); Blood Urea Nitrogen 14 mg/dL (7-20); Calcium 8.8 mg/dL (8.6-10.8); Carbon Dioxide 20 mEq/L (19-29); Chloride 108 mEq/L (98-109); Glucose 248 mg/dL (70-99); Osmolality,Calculated 297 (280-300); Potassium 4.4 mEq/L (3.5-4.5); Sodium 139 mEq/L (136-145); eGFR For African Americans > 60 (> 60); eGFR For Non-African Americans > 60 (> 60)
[2016-12-21 07:15] LABS: Basophils % 0.1 %; Hematocrit 39.7 % (35.3-44.9); Hemoglobin 12.8 g/dL (11.5-15.4); Immature Granulocytes % 0.8 % (0-4); Lymphocytes # 0.9 K/mcL (0.6-4.6); Mean Corpuscular HGB Conc 32.2 g/dL (31.6-35.5); Mean Corpuscular Hemoglobin 27.5 pg (28.0-33.3); Mean Corpuscular Volume 85.4 fL (83.0-100.0); Mean Platelet Volume 9.3 fL (9.4-12.4); Monocytes # 0.4 K/mcL (0.0-1.3); Monocytes % 2.4 %; Neutrophils # 16.2 K/mcL (1.6-8.9); Platelet Count 538 K/mcL (140-400); Red Blood Count 4.65 M/mcL (3.82-4.97); Red Cell Distribution Width 15.5 % (11.5-14.5); Segmented Neutrophils % 91.7 %
[2016-12-21] MEDS ORDERED: Azithromycin 250 MG TABLET PO ONE (08:53)
[2016-12-21] MEDS: Loratadine 10 MG TABLET PO SCH (10:23)
[2016-12-21] MEDS: Famotidine 20 MG TABLET PO SCH (10:23)
--- NOTE | 2016-12-21 10:23 | Nuclear Medicine Stress Report ---
Regadenoson Nuclear Stress Name: Fidelia MARKS Date of Study: 12/21/2016 Date: 1965 Ht: 64.0 in Medical Record#: [id number] Age: 51 Wt: 193.0 lb Gender: Female Order #: [id number] Location: [facility] Room: [facility] Supervising Provider: Mignon Jimenez CNP Reading Physician: Brianne Sharma DO Ordering Physician: Janice Sanchez CNP Primary Care Physician: Mikayla Curran CNP Stress Technologist: Maricruz Albarado [employer], CCT Hog Handler: Sami Bland Indications: Chest Pain Impression: Perfusion imaging was negative for ischemia or infarct. No appreciable change in pharmacologic ECG with stress. Patient complained of slight chest pressure which is a nonspecific finding with pharmacologic infusion. Gated EF = >70%. Stress Test Summary: Stress Test Type: Pharmacologic Regadenoson 0.4mg/5ml given IV Baseline Information: Initial Heart Rate: 85 Blood Pressure: 108/72 Stress Information: Test Terminated Due to (primary): As per protocol Maximum Blood Pressure: 118/80 Maximum Heart Rate: 112 Percent Maximum Heart Rate Achieved: 67 Double Product: [id number] METS Reached: 1 Symptoms: Heavy in chest Nuclear Summary: SPECT myocardial perfusion imaging using Tc99m Sestamibi given intravenously was performed at rest and following cardiac stress testing. The resting images were obtained following initial dose of 11.1 mCi. Following stress an additional dose of 35.0 mCi was given at peak exercise or 30 seconds post regadenoson infusion. Medication Given: Time Medication Dose Units Route Findings: Stress Note * Resting ECG demonstrated normal sinus rhythm with nonspecific ST abnormalities. * Patient had slight heaviness in the chest. * No arrhythmias were noted during stress. * No appreciable change in pharmacologic stress ECG from baseline. Hemodynamic responses * Normal hemodynamic responses to pharmacologic stress. Study Quality * Study quality was fair. Left Ventricle * The left ventricle is not dilated. TID * No evidence of transient ischemic dilatation. Lung Uptake * There is no evidence of increase lung uptake. NORMALS * Normal wall motion. * Normal segmental perfusion in stress. * Normal Segmental Perfusion in rest. Gated EF > 70% * Gated EF > 70%. Updated by Brianne Sharma on 12/21/2016 10:18:29 AM electronically signed on 12/21/2016 10:19:49 AM with status of Final
[2016-12-21] MEDS: Aspirin Enteric Coated 81 MG Tablet PO SCH (10:24)
[2016-12-21] MEDS: Fluticasone Propionate Nasal 50 MCG/SPRAY BOTTLE NS SCH (10:24)
[2016-12-21 11:17] VITALS: BP 146/90
--- NOTE | 2016-12-21 12:04 | Discharge Summary ---
Date of Encounter: 12/21/16 Time of Encounter: 10:40 - Discharge Diagnosis (1) Chest pain Priority: Primary Status: Acute Comments: Pt reports same chest pain since admission. Onset of chest pain while visiting her mother in the hospital. Pt had exposure to fumes from sack cleaner with bleach that was used to clean a nearby room. Pt states that pain is L mid chest with some radiation to L shoulder, L post neck, under L arm to elbow. She describes the pain to L arm as feeling like a muscle spasm. She has chronic reactive airway disease and has not had chest pain with any other episode. She is requiring supplemental 02 to maintain her sats. Her lungs are clear and dimished posteriorly. Echocardiogram showed LVEF 60-65%, normal LV chamber size, wall thickness, and function. Mild diastolic dysfunction. normal RV structure and function, no evidence of pulmonary hypertension, and no significan valvular dysfunction. CTA is negative for PE. LLL and ingular atelectasis or infiltrate. Stress was negative for ischemia or infarct, non specific chest pain with medication administration. Gated EF >70%. This chest pain is most likely due to pneumonia. She has been treated with initial IV antibiotic and will be sent home with po antibiotics. Qualifiers: Chest pain type: unspecified Qualified Code(s): R07.9 - Chest pain, unspecified (2) Asthma exacerbation in COPD Priority: Secondary Status: Chronic Comments: Lungs are clear and diminished. She has been getting IV steroids, will send her home on po steroids. She has been treated with nebulizer treatments as well. Plan as above. (3) Reactive airway disease Priority: Secondary Status: Chronic Comments: Chronic. 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 Plan as above. Qualifiers: Asthma severity: unspecified severity Asthma complication type: with acute exacerbation Qualified Code(s): J45.901 - Unspecified asthma with (acute) exacerbation (4) Community acquired pneumonia Priority: Secondary Status: Chronic Comments: Patient had initial chest x-ray on arrival on December 19. There are no acute findings in the chest. CT scan was done on December 20 due to concern for continued left chest pain. It showed left lower lobe and lingular atelectasis or infiltrate, negative for PE. Patient had leukocytosis today, white count 17.7 this morning. Her curb 65 score is 0. She was given a gram of Rocephin IV and Zithromax 500 mg. After consideration of her chronic lung disease, I am sending her home on Levaquin. She will also be sent home with prednisone taper. She also says that she needs albuterol nebulizer treatments. Her lungs are clear and diminished throughout. Chest pain was most likely due to pneumonia. Patient does not require supplemental oxygen at home. (5) DVT prophylaxis Priority: Secondary Status: Acute Comments: Compression stockings. Pt has been ambulatory in room and up to chair. - Discharge Medications Prescriptions: Albuterol Neb [Proventil Neb] 2.5 mg IH Q4H PRN #30 inhsol PRN Reason: Shortness Of Breath/Wheezing Ipratropium/Albuterol Neb [Duoneb] 3 ml IH QID PRN #64 inhsol PRN Reason: Shortness Of Breath Nicotine Patch [Nicoderm] 21 mg TD DAILY PRN #30 patch.td24 PRN Reason: Nicotine Cravings PredniSONE 10 mg PO DAILY #31 tablet Home Medications: Albuterol Sulfate [Proair Hfa] 2 puff IH Q4H PRN 12/19/16 [History] Aspirin Enteric Coated [Aspirin EC] 81 mg PO DAILY 12/19/16 [History] Fexofenadine HCl [Allergy Relief] 180 mg PO DAILY 12/19/16 [History] Fluticasone Propionate Nasal [Flonase] 50 mcg NS DAILY 12/19/16 [History] Fluticasone/Salmeterol [Advair Hfa 230-21 Mcg Inhaler] 2 puff IH BID 12/19/16 [ History] Montelukast [Singulair] 10 mg PO HS 12/19/16 [History] Tiotropium [Spiriva] 18 mcg IH DAILY 12/19/16 [History] Albuterol Neb [Proventil Neb] 2.5 mg IH Q4H PRN #30 inhsol 12/21/16 [Rx] Ipratropium/Albuterol Neb [Duoneb] 3 ml IH QID PRN #64 inhsol 12/21/16 [Rx] Levofloxacin [Levaquin] 500 mg PO DAILY #10 tablet 12/21/16 [Rx] Nicotine Patch [Nicoderm] 21 mg TD DAILY PRN #30 patch.td24 12/21/16 [Rx] PredniSONE 10 mg PO DAILY #31 tablet 12/21/16 [Rx] Allergies/Adverse Reactions: Allergies No Known Allergies Allergy (Verified 12/19/16 15:40) Procedures/tests Complete & Pending: Procedures Performed prior 72 hours Category Date Time Status CTA chest [CT angio chest] [CT] Routine Cat Scan 12/20/16 16:07 Completed NM po perf SPECT multi [NM] Routine Exams 12/20/16 10:22 Taken ECG 12 lead ECG [ECG] Routine Y 12/19/16 21:13 Ordered ECG 12 lead ECG [ECG] Routine Y 12/20/16 07:00 Completed EV echocardiogram Routine Y 12/20/16 08:00 Completed SP pharm nuclear stress Routine Y 12/21/16 07:00 Completed Date of admission: 12/19/16 18:20 Primary care physician: Mikayla Curran CNP Consults: 12/19/16 20:44 Consult to Nurse Navigator [CONS] Routine Comment: Consult to Nurse Navigator [CONS] Routine Comment: Discharging clinician: Janice Sanchez Anticipated date of discharge: 12/21/16 - Patient Status Disposition: Home, Self-Care Condition: Good Functional capacity at discharge: independent ambulation Overall status at discharge: patient is progressing back to baseline - Discharge Instructions Follow Up With: Mikayla Curran CNP [Primary Care Provider] - Additional Instructions: Take your medications as directed. Finish your steroids and antibiotics. Stay in as much as possible. Drink plenty of fluids. Follow up with your primary care physician within the next week for a recheck. Return to the ER for any other problems or concerns, if your condition changes or becomes worse, if you have more difficulty breathing, or for any other concerning symptom. Continue your other home medications. Hospital course: Ms. Betsy Mcallister is a 51 year old female with a past medical history of reactive airway disease, and asthma. Patient came to the emergency department after exposure to cleaning with bleach while visiting mother in the hospital. Her history of reactive airway disease stems from an occupational exposure to chlorine gas several years ago. 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 She was at baseline prior to coming to the emergency room. After the exposure of the hospital she became short of breath, coughing, chest burning, and left mid chest pain with some radiation to her neck under her arm to her elbow, and around to left mid back. She describes the pain down her arm as a muscle spasm. She has never had symptoms like this in the past. She said the most severe pain was 10 out of 10 and she said she did get some relief with nitroglycerin in the emergency department. The time she was admitted for cardiac workup and reactive airways disease exacerbation. Initial chest x-ray in the emergency department showed no findings of pleural effusion or pneumothorax. No acute findings in the chest. She had an echocardiogram that showed LVEF of 60-65%, mild diastolic dysfunction, normal RV structure and function, no evidence of pulmonary hypertension, no significant valvular dysfunction. Her chest pain continued throughout the day and did not seem to be relieved. The pain was somewhat reproducible with palpation, but patient states that it was not the exact same pain. Patient was requiring supplemental oxygen yesterday. She also had a new headache yesterday that was resolved with IV Benadryl and Toradol. Due to concern of possible PE, a CT angios chest was ordered that was negative for pulmonary embolus, however, there is left lower lobe and lingular atelectasis. This morning patient had a leukocytosis, elevated white count 17.7. Her curb 65 score is 0. She was given Rocephin 1 g IV and Zithromax 500 mg IV. Due to her extensive history, I am sending her home with Levaquin 500 mg by mouth 10 days, prednisone taper, and she also states that she needed albuterol nebulizer treatments for home. Patient had a stress test today that was negative for ischemia or infarct. There is no appreciable change in pharmacologic ECG with stress. She had nonspecific chest pressure with the medication infusion. Her gated EF is greater than 70%. Patient continues to have chest pain that is most likely due to pneumonia. She is able to ambulate without difficulty. She is able to speak in full sentences without difficulty. Her lungs are clear and diminished anteriorly and posteriorly. She has no peripheral edema. She has no abdominal pain, nausea, vomiting, diarrhea. Patient is requesting an excuse for work, she will be off for work until she follows up with and is cleared by her primary care physician. She will resume all other home medications after discharge. Patient is stable for discharge. - Time Spent with Patient Total time spent providing and/or coordinating discharge services: - Constitutional Vitals: Temp Pulse Resp BP Pulse Ox 97.6 F 94 16 146/90 95 12/21/16 11:14 12/21/16 11:14 12/21/16 11:14 12/21/16 11:14 12/21/16 11:14 General appearance: Present: cooperative, mild distress, A&O X 3, pleasant, no acute distress, obese, answers questions appropriately - Head Head exam: Present: normal inspection - Eye Eye exam: Present: normal appearance, conjuntiva pink - ENT ENT exam: Present: mucous membranes moist, normal exam - Neck Neck exam general surgery: Present: normal inspection. Absent: lymphadenopathy , tenderness - Respiratory Respiratory exam: Present: decreased breath sounds, CTAB. Absent: accessory muscle use, chest wall tenderness, rales, respiratory distress, rhonchi, stridor , wheezes, tachypnea - Cardiovascular Cardiovascular exam: Present: RRR, +S1, +S2. Absent: clicks, diastolic murmur, distant heart sounds, gallop, systolic murmur, tachycardia - Expanded Cardiovascular Exam Peripheral pulses: 2+: Dorsalis Pedis (L) PM, Dorsalis Pedis (R) PM - GI/Abdominal GI/Abdominal exam: Present: normal bowel sounds. Absent: diminished bowel sounds, distended, hepatomegaly, tenderness - Extremities Exam Extremities exam: Present: normal inspection, warm, radial pulses palpable and symetrical. Absent: joint swelling, pedal edema, tenderness - Neurological Exam Neurological exam: Present: alert, oriented X3, no focal deficits, strengths equal and symetr throughout. Absent: motor sensory deficit, pronater drift, facial droop, speech deficit - VTE Documentation of Mechanical Device: Graduated compression elastic hosiery
== END 2016-12-21 14:40 | disposition home or self-care (01) ==
LOC: EMEROO 15:38 → 3BNU 15:38
PROVIDERS: ADMIT Family Medicine; ATTEND Registered Nurse

== ENCOUNTER 2018-08-09 08:24 | Observation (INO) ==
[2018-08-09] MEDS ORDERED: GI Cocktail 40 ML EACH PO ONE (08:39)
[2018-08-09] MEDS ORDERED: 0.9 % Sodium Chloride 1,000 ML IVC ONE (08:39)
--- NOTE | 2018-08-09 08:42 | Emergency Department Note ---
Disposition Clinical Impression: Chest pain Qualifiers: Chest pain type: unspecified Qualified Code(s): R07.9 - Chest pain, unspecified Disposition: Admitted As Inpatient Condition: Good Forms: ED Satisfaction Letter Chest Pain HPI - General Chief Complaint: ED Chest Pain Stated Complaint: CP Time Seen by Provider: 08/09/18 08:28 Source: patient Limitations: no limitations Vital Signs Reviewed: Yes Nursing Notes Reviewed: Yes - History of Present Illness HPI Narrative: Patient with history of ulcers presenting to the emergency department for evaluation of epigastric pain radiating to the left shoulder. Started earlier today with epigastric pain she thought related to her ulcers. She took Carafate without any significant improvement. Pain worsened by going into her chest. Patient describes it as a sharp pain with radiation to both the neck and left arm. She has not had anything make her symptoms better or worse. She does have a history of reactive airway disease. She states this sometimes leaves her dyspneic associated wheezing. Patient does not have significant shortness of breath and no wheezing on exam. EKG shows sinus rhythm without any significant EKG changes. Does have a significant family history of MIs and 40s and 50s with both her brother and parents. Given the negative EKG and strong ulcer history GI cocktail will be given. Further treatment including blood work as well as further inspected investigation of cardiac etiology will be obtained. Disposition pending. Severity scale (1-10): 9 - Related Data Home Medications Medication Instructions Recorded Confirmed Albuterol Sulfate [Proair Hfa] 2 puff IH Q4H PRN 12/19/16 12/19/16 Previous Rx's Medication Instructions Recorded Albuterol Neb [Proventil Neb] 2.5 mg IH Q4H PRN #30 inhsol 12/21/16 Allergies Allergy/AdvReac Type Severity Reaction Status Date / Time No Known Allergies Allergy Verified 02/24/18 15:02 All systems ED: reviewed and negative except as stated. Review of Systems: As Per HPI Constitutional: Denies: fever, chills ENT ED: Denies: congestion Cardiovascular: Reports: chest pain. Denies: dyspnea on exertion Respiratory: Denies: cough, dyspnea Gastrointestinal: Reports: abdominal pain, nausea. Denies: vomiting, diarrhea Genitourinary: Denies: urgency, dysuria Musculoskeletal: Denies: back pain Integumentary: Denies: rash, abrasion Neurological: Denies: headache Endocrine: Denies: fatigue Chest Pain PMH - Past Medical History Medical history: Reports: non-contributory, other Surgical history: Reports: herniorrhaphy Psychiatric history: Reports: other - Social History Smoking Status: Never smoker Alcohol use: Reports: occasionally Drug use: Reports: none Physical Exam General: Mild distress secondary to pain Head: Normocephalic Atraumatic Eyes: PERRL, EOMI ENT: Airway patent, no stridor Neck: supple, no meningismus Chest: Lungs clear to auscultation bilateral Cardiac: Regular rate and rhythm, no murmurs, rubs or gallops Abdomen: soft, mild tenderness to palpation throughout the right upper quadrant as well as epigastric region, nondistended; no guarding, rebound, or tenderness to percussion Musculoskeletal: Calves symmetric, nontender Skin: No rash, normal skin tone Neuro: Awake alert and answers all questions appropriately. No focal deficit - General Limitations: no limitations General appearance: alert Course - Reevaluation(s) Reevaluation #1: Patient with no significant symptom relief after GI cocktail. Nitroglycerin given with pain decreasing to a 4 out of 10. At this time the patient will be admitted for further cardiac evaluation. Given her overall history and lack of EKG changes patient will benefit from repeat troponins. Patient's symptoms may be more related to peptic ulcer disease. Her abdomen is soft nontender to palpation with no indication for CT imaging at this time. If troponins are negative and patient is thought to have more of a gastric etiology then EGD may be favored over stress test. Given the patient's overall continued symptoms she is not a candidate for her outpatient management at this time. - Consultations Consultation #1: Discussed with the resident working with hospitalist Dr. Gutierrez Patient accepted for admission. Vital Signs Temperature 97.7 F 08/09/18 08:29 Pulse Rate 68 08/09/18 08:29 Respiratory Rate 18 08/09/18 08:29 Blood Pressure 144/100 08/09/18 08:29 O2 Sat by Pulse Oximetry 100 08/09/18 08:29 Temperature 97.7 F 08/09/18 08:37 Pulse Rate 62 08/09/18 09:14 Respiratory Rate 11 08/09/18 09:14 Blood Pressure 122/73 08/09/18 09:14 O2 Sat by Pulse Oximetry 98 08/09/18 09:14 Oxygen Delivery Oxygen Delivery Room Air Chest Pain - Medical Records Medical records reviewed: Yes I reviewed the patient's medical records. - Lab Data Lab results reviewed: Yes I reviewed the patient's lab results. Result diagrams: 08/09/18 08:30 08/09/18 08:48 Lab Results 08/09/18 08/09/18 Range/Units 08:30 08:48 WBC 6.6 (4.3-11.1) K/mcL RBC 5.18 H (3.82-4.97) M/mcL Hgb 14.1 (11.5-15.4) g/dL Hct 43.7 (35.3-44.9) % MCV 84.4 (83.0-100.0) fL MCH 27.2 L (28.0-33.3) pg MCHC 32.3 (31.6-35.5) g/dL RDW 14.1 (11.5-14.5) % Plt Count 489 H (140-400) K/mcL MPV 8.8 L (9.4-12.4) fL Immature Gran % 0.2 (0-4) % Seg Neutrophils % 42.9 % Lymphocytes % 43.0 % Monocytes % 10.0 % Eosinophils % 3.0 % Basophils % 0.9 % Neutrophils # 2.9 (1.6-8.9) K/mcL Lymphocytes # 2.9 (0.6-4.6) K/mcL Monocytes # 0.7 (0.0-1.3) K/mcL Eosinophils # 0.2 (0.0-0.6) K/mcL Basophils # 0.1 (0.0-0.2) K/mcL Sodium 138 (136-145) mEq/L Potassium 3.6 (3.5-5.1) mEq/L Chloride 106 (98-107) mEq/L Carbon Dioxide 26 (23-29) mEq/L BUN 15 (6-20) mg/dL Creatinine 0.53 L (0.60-1.20) mg/dL Est GFR ( Amer) > 60 (> 60) Est GFR (Non-Af Amer) > 60 (> 60) BUN/Creatinine Ratio 28 H (6-26) Glucose 106 H (70-105) mg/dL Calculated Osmolality 287 (280-300) Calcium 9.2 (8.6-10.3) mg/dL Total Bilirubin 0.6 (0.3-1.0) mg/dL Direct Bilirubin 0.1 (0.0-0.2) mg/dL Indirect Bilirubin 0.5 (0.0-1.2) mg/dL AST 15 (13-39) Units/L ALT 15 (7-52) Units/L Alkaline Phosphatase 78 (34-104) Units/L Troponin I < 0.03 (< 0.04) ng/mL Serum Total Protein 6.9 (6.4-8.9) g/dL Albumin 4.2 (3.5-5.7) g/dL Globulin 2.7 (2.4-3.5) g/dL Albumin/Globulin Ratio 1.6 (1.1-2.2) Lipase 14 (11-82) Units/L - Radiology Data Radiology results reviewed: Yes I reviewed the patient's radiology results. - EKG Data EKG attestation: Yes I reviewed and interpreted this EKG. EKG results narrative: EKG shows sinus rhythm with heart rate of 68 IL 129 QRS [address]TC [address] elevations or depressions or T-wave inversions. No significant change from prior EKG.
[2018-08-09] MEDS ORDERED: Aspirin 81 MG TAB.CHEW PO STA (08:57)
[2018-08-09] MEDS: Nitroglycerin 0.4 MG TAB.SUBL SL PRN ×3 (09:03→09:18)
[2018-08-09 09:05] LABS: Basophils # 0.1 K/mcL (0.0-0.2); Basophils % 0.9 %; Eosinophils # 0.2 K/mcL (0.0-0.6); Hematocrit 43.7 % (35.3-44.9); Hemoglobin 14.1 g/dL (11.5-15.4); Immature Granulocytes % 0.2 % (0-4); Lymphocytes # 2.9 K/mcL (0.6-4.6); Mean Corpuscular HGB Conc 32.3 g/dL (31.6-35.5); Mean Corpuscular Hemoglobin 27.2 pg (28.0-33.3); Mean Corpuscular Volume 84.4 fL (83.0-100.0); Mean Platelet Volume 8.8 fL (9.4-12.4); Monocytes # 0.7 K/mcL (0.0-1.3); Neutrophils # 2.9 K/mcL (1.6-8.9); Platelet Count 489 K/mcL (140-400); Red Blood Count 5.18 M/mcL (3.82-4.97); Red Cell Distribution Width 14.1 % (11.5-14.5); Segmented Neutrophils % 42.9 %
[2018-08-09 09:19] LABS: Troponin I < 0.03 ng/mL (< 0.04)
[2018-08-09 09:20] LABS: Alanine Aminotransferase 15 Units/L (7-52); Albumin 4.2 g/dL (3.5-5.7); Albumin/Globulin Ratio 1.6 (1.1-2.2); Alkaline Phosphatase 78 Units/L (34-104); Aspartate Amino Transferase 15 Units/L (13-39); BUN/Creatinine Ratio 28 (6-26); Bilirubin,Direct 0.1 mg/dL (0.0-0.2); Bilirubin,Indirect 0.5 mg/dL (0.0-1.2); Bilirubin,Total 0.6 mg/dL (0.3-1.0); Blood Urea Nitrogen 15 mg/dL (6-20); Calcium 9.2 mg/dL (8.6-10.3); Carbon Dioxide 26 mEq/L (23-29); Chloride 106 mEq/L (98-107); Globulin 2.7 g/dL (2.4-3.5); Glucose 106 mg/dL (70-105); Lipase 14 Units/L (11-82); Osmolality,Calculated 287 (280-300); Potassium 3.6 mEq/L (3.5-5.1); Sodium 138 mEq/L (136-145); Total Protein 6.9 g/dL (6.4-8.9); eGFR For Non-African Americans > 60 (> 60)
[2018-08-09] MEDS ORDERED: *HR* FentaNYL (PF) 100 MCG/2 ML VIAL IVP ONE (09:34)
[2018-08-09] MEDS ORDERED: Famotidine 20 MG/2 ML VIAL IVP ONE (09:34)
[2018-08-09] MEDS ORDERED: Ondansetron 4 MG/2 ML VIAL IVP ONE (09:35)
[2018-08-09] MEDS ORDERED: Ondansetron ODT 4 MG TAB.RAPDIS SL PRN (10:59)
[2018-08-09] MEDS ORDERED: Naloxone 0.4 MG/ML INJ IVP PRN (10:59)
[2018-08-09] MEDS ORDERED: Ketorolac 15 MG/ML VIAL IVP PRN (10:59)
[2018-08-09] MEDS ORDERED: Acetaminophen 325 MG TABLET PO PRN (10:59)
[2018-08-09] MEDS ORDERED: OXYCODONE Oral CONC 10 MG/0.5 ML ORAL.SYG SL PRN (10:59)
[2018-08-09] MEDS ORDERED: Ipratropium/Albuterol Neb 3 ML IH PRN (11:14)
[2018-08-09] MEDS ORDERED: Levofloxacin 500 MG/100 ML 500 MG/100 ML BAG IVPB SCH (12:00)
--- NOTE | 2018-08-09 12:33 | Internal Med History&Physical ---
<Aida Chery - Last Filed: 08/09/18 12:30> Date of Encounter: 08/09/18 Time of Encounter: 12:30 Internal Medicine - H&P: HPI Chief complaint: chest pain Admitted From: Emergency Dept Plans for Post Hospital Care: Home History of present illness: Ms. Betsy Mcallister is a 53 year old female with past medical history of reactive airway disease, asthma, gastric ulcers. Patient arrived to the emergency department today which chief complaint of chest pain that started at 7 AM when she was getting out of bed. The pain and initially started as epigastric pain. She took her medications for gastric ulcer, but the pain did not relieve. She eventually started getting 7/10 chest pain located sub sternal in the left side of the chest and radiating to her left arm, left jaw. Chest pain was intermittent, sharp/stabbing. Patient received nitroglycerin x3 in ED which slightly relieved her symptoms. She reports no exacerbating symptoms. She denies smoking history. She does report that her brother had a heart attack at age 43. She admits to nausea without vomiting. She denies diarrhea, fevers, chills. She does report intermittent shortness of breath. She denies hematuria, melena, hematochezia Past Med Surg Social Fam HX - Past Medical History Medical history: non-contributory, other Additional medical history: ulcers Psychiatric history: other - Past Surgical History Surgical History: herniorrhaphy - Social History Smoking Status: Never smoker Smokeless Tobacco Status: No Alcohol use: occasionally Drug use: none - Family History Mother Hx Family Cardiac Disorders: Yes (CHF) Hx Family Respiratory Disorders: Yes (COPD) Hx Family Endocrine Disorder: Yes Hx Family Neuromuscular Disorders: Yes (STROKE) Father Hx Family Cardiac Disorders: Yes Hx Family Neurologic Disorders: Yes (STROKE) Internal Medicine - H&P: Meds Albuterol Sulfate [Albuterol Inhaler] 2 puff IN Q4H PRN 08/09/18 [History] Aspirin [Adult Aspirin Regimen] 81 mg PO DAILY 08/09/18 [History] Fluticasone Propionate Nasal [Flonase] 1 spray NS DAILY 08/09/18 [History] Fluticasone Propionate [Flovent Hfa] 2 puff IN BID 08/09/18 [History] Fluticasone/Salmeterol [Advair Hfa 230-21 Mcg Inhaler] 2 puff IN BID 08/09/18 [History] Omeprazole [PriLOSEC] 20 mg PO BID 08/09/18 [History] Sucralfate [Carafate] 1 gm PO QID 08/09/18 [History] Tiotropium [place] [Spiriva Respimat] 2 puff IN DAILY 08/09/18 [History] Allergy/AdvReac Type Severity Reaction Status Date / Time No Known Allergies Allergy Verified 08/09/18 10:37 All Systems PM: A 10-system review of systems was performed and is negative for pertinent findings except as documented above in the HPI. - Constitutional Constitutional: as per HPI - EENT Eyes: as per HPI Ears: as per HPI Nose, mouth and throat: as per HPI - Breasts Breasts: as per HPI - Cardiovascular Cardiovascular ROS IM: as per HPI - Respiratory Respiratory: as per HPI - Gastrointestinal Gastrointestinal: as per HPI - Genitourinary Genitourinary: as per HPI Menstruation: as per HPI - Musculoskeletal Musculoskeletal ROS IM: as per HPI - Integumentary Integumentary IM: as per HPI - Neurological Neurological ROS: as per HPI - Psychiatric Psychiatric: as per HPI - Endocrine Endocrine IM: as per HPI - Hematologic/Lymphatic Hematologic/Lymphatic: as per HPI - Constitutional Vitals: Temp Pulse Resp BP Pulse Ox 97.1 F L 59 16 119/89 94 08/09/18 11:44 08/09/18 11:44 08/09/18 11:44 08/09/18 11:44 08/09/18 11:44 Exam: Gen.: alert and oriented x3, pleasant, appears to be in mild distress from epigastric pain. Morbidly obese. CV: regular rate and rhythm, no murmurs, wrote, gallops, normal S1, S2. No pedal edema noted. Respiratory: clear too auscultation bilaterally abdomen: soft, non-distended, bowel sounds present. Mild epigastric tenderness to palpation. Extremities: no cyanosis or edema present. Internal Med - H&P Results - Labs CBC & Chem 7: 08/09/18 08:30 08/09/18 08:48 Labs: Short CBC 08/09/18 Range/Units 08:30 WBC 6.6 (4.3-11.1) K/mcL Hgb 14.1 (11.5-15.4) g/dL Hct 43.7 (35.3-44.9) % Plt Count 489 H (140-400) K/mcL Neutrophils # 2.9 (1.6-8.9) K/mcL BMP 08/09/18 08:48 Sodium 138 Potassium 3.6 Chloride 106 Carbon Dioxide 26 BUN 15 Creatinine 0.53 L Glucose 106 H Calcium 9.2 Cardiac Enzymes 08/09/18 Range/Units 08:48 Troponin I < 0.03 (< 0.04) ng/mL Liver Function 08/09/18 Range/Units 08:48 Total Bilirubin 0.6 (0.3-1.0) mg/dL Direct Bilirubin 0.1 (0.0-0.2) mg/dL AST 15 (13-39) Units/L ALT 15 (7-52) Units/L Alkaline Phosphatase 78 (34-104) Units/L Albumin 4.2 (3.5-5.7) g/dL - Impressions ITS Impressions Chest X-Ray 08/09/18 08:38 IMPRESSION: Low lung volumes. No acute cardiopulmonary disease D/ / Mauro Egan MD / Mauro Egan MD Interpreting Provider: Mauro Egan MD - Assessment and plan (1) Chest pain Current Visit: Yes Status: Acute Assessment and plan: 53F presents with symptoms of atypical chest pain. No prior cardiac history, no smoking history. Does have family history of NC (brother at age 45) CHest pain relieved with nitroglycerin x3 No EKG changes ZEENAT score: 2 Heart score: 2 12/21/16 nuclear stress test negative for ischemia or infarct. Plan: continue ASA trend troponin echo NPO midnight. nuclear stress test in am. if negative, will need further GI workup. Qualifiers: Chest pain type: unspecified Qualified Code(s): R07.9 - Chest pain, unspecified (2) DVT prophylaxis Current Visit: No Status: Acute Assessment and plan: heparin SQ (3) Reactive airway disease Current Visit: No Status: Chronic Assessment and plan: history of reactive airway disease from work accident at [employer]. continue home meds. Qualifiers: Asthma severity: unspecified severity Asthma persistence: unspecified Asthma complication type: uncomplicated Qualified Code(s): J45.909 - Unspecified asthma, uncomplicated - Time Spent With Patient Total time spent is greater than 50% in coordination of care (as documented) at patient's floor/unit and/or counseling patient: <Benito Gutierrez - Last Filed: 08/09/18 13:37> Date of Encounter: 08/09/18 Time of Encounter: 10:30 Internal Medicine - H&P: HPI History of present illness: Ms. Betsy Mcallister is a 53 year old female All Systems PM: A 10-system review of systems was performed and is negative for pertinent findings except as documented above in the HPI. - Constitutional Vitals: Temp Pulse Resp BP Pulse Ox 97.1 F L 59 16 119/89 94 08/09/18 11:44 08/09/18 11:44 08/09/18 11:44 08/09/18 11:44 08/09/18 11:44 Internal Med - H&P Results - Labs CBC & Chem 7: 08/09/18 08:30 08/09/18 08:48 Labs: Short CBC 08/09/18 Range/Units 08:30 WBC 6.6 (4.3-11.1) K/mcL Hgb 14.1 (11.5-15.4) g/dL Hct 43.7 (35.3-44.9) % Plt Count 489 H (140-400) K/mcL Neutrophils # 2.9 (1.6-8.9) K/mcL BMP 08/09/18 08:48 Sodium 138 Potassium 3.6 Chloride 106 Carbon Dioxide 26 BUN 15 Creatinine 0.53 L Glucose 106 H Calcium 9.2 Cardiac Enzymes 08/09/18 Range/Units 08:48 Troponin I < 0.03 (< 0.04) ng/mL Liver Function 08/09/18 Range/Units 08:48 Total Bilirubin 0.6 (0.3-1.0) mg/dL Direct Bilirubin 0.1 (0.0-0.2) mg/dL AST 15 (13-39) Units/L ALT 15 (7-52) Units/L Alkaline Phosphatase 78 (34-104) Units/L Albumin 4.2 (3.5-5.7) g/dL - Impressions ITS Impressions Chest X-Ray 08/09/18 08:38 IMPRESSION: Low lung volumes. No acute cardiopulmonary disease D/ / Mauro Egan MD / Mauro Egan MD Interpreting Provider: Mauro Egan MD - Assessment and plan (1) Chest pain Current Visit: Yes Status: Acute Qualifiers: Chest pain type: precordial pain Qualified Code(s): R07.2 - Precordial pain (2) DVT prophylaxis Current Visit: No Status: Acute (3) Reactive airway disease Current Visit: No Status: Chronic Qualifiers: Asthma severity: unspecified severity Asthma persistence: unspecified Asthma complication type: uncomplicated Qualified Code(s): J45.909 - Unspecified asthma, uncomplicated - Time Spent With Patient Total time spent is greater than 50% in coordination of care (as documented) at patient's floor/unit and/or counseling patient: - Attending Attestation I saw evaluated and examined this patient and my medical decision-making was reviewed with the Resident Physician, Aida Chery. I agree with the documented findings, disposition and treatment plan as described except to any changes set forth below. We independently had [id number] contact with the patient. 53-year-old female patient with a history of peptic ulcer disease, asthma, who presented to the ER with complaints of left-sided chest pain that began this morning around 7 AM. Patient initially had stabbing kind of chest pain in the left side radiating to her left shoulder and jaw. She has never had this kind of pain before. She took 81 mg of aspirin at home and then came to the ER as she had no relief. In the ER she got another aspirin and 3 pills of nitroglycerin with some relief of her pain. It is no longer that severe but it is still present as a pressure like sensation on the left side of her chest. She has chronic abdominal/epigastric pain related to her optic ulcer disease. She does take PPI for it. She denies any fevers or chills. No nausea or vomiting. No palpitations. 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 She also noticed some swelling in her lower extremities last evening. General: Patient is alert, no acute distress, oriented x 3 Neck: normal inspection, trachea midline, full ROM, no carotid bruits Chest: normal inspection, symmetric chest rise Respiratory: Good respiratory effort. Normal breath sounds. No wheezing or crackles. Cardiovascular: Regular rate and rhythm. s1 and s2 normal No clicks, rubs, gall ops, or murmurs. No pedal edema Abdomen: Abdomen is soft, epigastric tenderness. Bowel sounds are present Musculoskeletal: Spontaneously moving all extremities Skin: warm, dry, intact. Neuro: Alert oriented x 3 normal cranial nerves, no focal deficits Precordial chest pain: Patient complaining of left-sided chest pain. Concerning for angina. We will trend troponins telemetry monitoring. Stress test in a.m. If troponins are negative. Also obtain 2-D echocardiogram as patient describes lower extremity swelling. Peptic ulcer disease: Continue PPI. Patient may have referred pain from her epigastric region up into her chest but the pain that she describes on the left side of the chest is completely different per her description. May need reevaluation with upper GI endoscopy if this pain does not improve. Active airway disease/asthma: We will treat symptomatically with bronchodil ators. DVT prophylaxis with subcutaneous heparin
[2018-08-09] MEDS: Sucralfate 1 GM TABLET PO SCH ×3 (15:16→21:48)
--- NOTE | 2018-08-09 15:41 | Electrocardiograph Report ---
[place] [id number] Test Date: 2018-08-09 Pat Name: Fidelia McallisterDepartment: [id number] Room: 2NE22 Gender: F Automotive Quality Engineer: : 1965 Requested By: Blair Giraldo Order Number: [id number] Reading MD: iSlvano Key Measurements Intervals [place] Rate: 68 P: 45 IN: 129 QRS: 54 QRSD: 101 T: 49 QT: 418 QTc: 445 Interpretive Statements Sinus rhythm Electronically Signed On 08-09-2018 15:39:31 EST by Silvano Key
[2018-08-09] MEDS ORDERED: Piperacillin/Tazobactam 3.375 GM in 0.9 % Sodium Chloride Mini Bag 100 ML IVPB SCH (16:00)
[2018-08-09] MEDS: *HR* Heparin 5,000 UNIT/ML VIAL SQ SCH (18:03)
[2018-08-09] MEDS: Budesonide/Formoterol 160/4.5 1 PUFF INH IH SCH (22:36)
[2018-08-09] MEDS: MOMETASONE FUROATE 100 mcg Inhaler IH SCH (22:37)
[2018-08-10 04:21] LABS: Basophils # 0.1 K/mcL (0.0-0.2); Eosinophils # 0.2 K/mcL (0.0-0.6); Eosinophils % 2.8 %; Hemoglobin 12.7 g/dL (11.5-15.4); Immature Granulocytes % 0.2 % (0-4); Lymphocytes # 2.1 K/mcL (0.6-4.6); Lymphocytes % 37.2 %; Mean Corpuscular HGB Conc 32.6 g/dL (31.6-35.5); Mean Corpuscular Hemoglobin 27.4 pg (28.0-33.3); Mean Corpuscular Volume 84.1 fL (83.0-100.0); Monocytes # 0.5 K/mcL (0.0-1.3); Monocytes % 8.6 %; Neutrophils # 2.9 K/mcL (1.6-8.9); Platelet Count 443 K/mcL (140-400); Red Blood Count 4.64 M/mcL (3.82-4.97); Red Cell Distribution Width 14.5 % (11.5-14.5); Segmented Neutrophils % 50.2 %
[2018-08-10 04:44] LABS: Chol/HDL Ratio 2.7 (0-4.9)
[2018-08-10 04:45] LABS: BUN/Creatinine Ratio 17 (6-26); Blood Urea Nitrogen 11 mg/dL (6-20); Calcium 8.8 mg/dL (8.6-10.3); Carbon Dioxide 23 mEq/L (23-29); Chloride 108 mEq/L (98-107); Glucose 106 mg/dL (70-105); Osmolality,Calculated 290 (280-300); Phosphorous 3.8 mg/dL (2.7-4.5); Sodium 140 mEq/L (136-145); eGFR For Non-African Americans > 60 (> 60)
[2018-08-10] MEDS ORDERED: Regadenoson 0.4 MG/5 ML SYRINGE IVP ONE (05:54)
[2018-08-10] MEDS: *HR* Heparin 5,000 UNIT/ML VIAL SQ SCH ×2 (06:03→21:41)
[2018-08-10] MEDS ORDERED: (Tiotropium Bromide [Spiriva Respimat] 2 PUFF) PO SCH (09:00)
[2018-08-10] MEDS: Sucralfate 1 GM TABLET PO SCH ×4 (11:07→21:41)
[2018-08-10] MEDS: Aspirin Enteric Coated 81 MG Tablet PO SCH (11:13)
[2018-08-10] MEDS: Budesonide/Formoterol 160/4.5 1 PUFF INH IH SCH ×2 (11:21→21:34)
[2018-08-10] MEDS: MOMETASONE FUROATE 100 mcg Inhaler IH SCH (11:22)
[2018-08-10] MEDS: Fluticasone Propionate Nasal 50 MCG/SPRAY BOTTLE NS SCH (13:11)
--- NOTE | 2018-08-10 14:47 | Internal Med Progress Note ---
Hospitalist Progress Note - Encounter Date of Encounter: 08/10/18 Time of Encounter: 08:00 - Subjective Interval History: Patient was seen and examined at bedside. Reports that she had the stress test, I discussed the stress test results with her and her . 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 Does report that she has history of GERD and gastric ulcers however this pain is completely different than the pain that she had experienced with ulcers. She has lost her appetite, denies vomiting or diarrhea. Reports that she has baseline shortness of breath from an incident in 2014 at the [facility]. - Exam Vitals: Temp Pulse Resp BP Pulse Ox 97.8 F 61 15 157/97 98 08/10/18 11:24 08/10/18 11:24 08/10/18 11:24 08/10/18 11:24 08/10/18 11:24 Exam: General: Patient is alert, oriented, no acute distress, obese Head: atraumatic, normocephalic, Eye: normal appearance, PERRL, no scleral icterus, no conjunctival injection ENT: mucous membranes moist, normal external ear exam Neck: normal inspection, trachea midline, full ROM, no carotid bruits Chest: normal inspection, symmetric chest rise Respiratory: Distant breath sounds secondary to body habitus. Bilateral breath sounds are decreased without wheezing, crackles, or rhonchi. Cardiovascular: Distant heart sounds in her to body habitus, Regular rate and rhythm. s1 and s2 No clicks, rubs, gallops, or murmors. Abdomen: Bowel sounds present normoactive x-4 quadrants. Abdomen is soft, nondistended. no Epigastric tenderness. No guarding or rebound. No organome annie noted, obese musculoskeletal: Spontaneously moving all extremities. no edema, no calf tenderness Skin: warm, dry, intact. Neuro: Alert and oriented x4. Sensation light touch intact. No focal deficits Psych: Patient's affect is normal - Assessment and Plan (1) Chest pain Current Visit: Yes Status: Acute Assessment and Plan: Does have family history of MD (brother at age 45) CHest pain relieved with nitroglycerin x3 No EKG changes ZEENAT score: 2 Heart score: 2 12/21/16 nuclear stress test negative for ischemia or infarct. Stress test performed again on 08/10/18- No ischemia or infarct on perfusion study. Technical artifact present (fixed apical-mid anterior perfusion defect of small size and mild intensity, normal wall motion). Stress LVEF >72%. Pharmacologic stress ECG non-diagnostic for ischemia. Echocardiogram is pending TTE: Impressions: LVEF 60-65%. Normal LV chamber size, wall thickness and function. Normal right ventricular structure and function. Mild tricuspid regurgitation. No pulmonary hypertension. Cardiology consulted will follow recommendations Continue aspirin, was started on low-dose Lipitor A1c in a.m. (2) Reactive airway disease Current Visit: No Status: Chronic Assessment and Plan: history of reactive airway disease from work accident at [employer]. continue home meds. (3) Obesity (BMI 30-39.9) Current Visit: Yes Status: Acute Assessment and Plan: BMI is 37.7 She was counseled (4) GERD (gastroesophageal reflux disease) Current Visit: Yes Status: Acute Assessment and Plan: Continue home medications (5) DVT prophylaxis Current Visit: No Status: Acute Assessment and Plan: heparin SQ - Time Spent with Patient Total time spent is greater than 50% in coordination of care (as documented) at patient's floor/unit and/or counseling patient: Internal Medicine: Result - Labs CBC & Chem 7: 08/10/18 03:18 08/10/18 03:18 Labs: Short CBC 08/10/18 Range/Units 03:18 WBC 5.7 (4.3-11.1) K/mcL Hgb 12.7 (11.5-15.4) g/dL Hct 39.0 (35.3-44.9) % Plt Count 443 H (140-400) K/mcL Neutrophils # 2.9 (1.6-8.9) K/mcL BMP 08/10/18 03:18 Sodium 140 Potassium 4.0 Chloride 108 H Carbon Dioxide 23 BUN 11 Creatinine 0.63 Glucose 106 H Calcium 8.8 Cardiac Enzymes 08/09/18 08/09/18 Range/Units 15:33 20:13 Troponin I < 0.03 < 0.03 (< 0.04) ng/mL - Impressions Impressions Echocardiogram 08/09/18 12:54 Impressions: LVEF 60-65%. Normal LV chamber size, wall thickness and function. Normal right ventricular structure and function. Mild tricuspid regurgitation. No pulmonary hypertension. Left Ventricular Wall Motion: Rest Echo Findings All wall segments showed normal motion. Findings: Study Quality * Technically adequate exam. ECG Findings * Normal sinus rhythm. Left Ventricle * LVEF 60-65%. * Normal LV chamber size, wall thickness and function. * Normal left ventricular diastolic function. Right Ventricle * Normal right ventricular structure and function. Left Atrium * Normal left atrial size. Right Atrium * Normal right atrial size. Interatrial Septum * Interatrial septum not well evaluated. * No evidence of PFO by color Doppler. Aortic Valve * Trileaflet aortic valve. * No aortic stenosis. * No aortic regurgitation. Mitral Valve * Normal mitral valve structure and function. * No mitral stenosis. * Trace mitral regurgitation. Tricuspid Valve * Normal tricuspid valve structure and function. * No tricuspid stenosis. * Mild tricuspid regurgitation. * Estimated RVSP is 26 mmHg. * Estimated RA pressure is 8 mmHg. * No pulmonary hypertension. Pulmonic Valve * Pulmonic valve is not well visualized. * No pulmonic stenosis. * No pulmonic regurgitation. Aorta * Normally sized aortic root. Pericardium * The pericardium appears normal. IVC * The IVC is dilated. * > 50% respiratory change Consult Discharge Plan - Plan Referrals: Sae Ruiz MD [Primary Care Provider] - (1) Chest pain Qualifiers: Chest pain type: precordial pain Qualified Code(s): R07.2 - Precordial pain (2) Reactive airway disease Qualifiers: Asthma severity: unspecified severity Asthma persistence: unspecified Asthma complication type: uncomplicated Qualified Code(s): J45.909 - Unspecified asthma, uncomplicated (4) GERD (gastroesophageal reflux disease) Qualifiers: Esophagitis presence: without esophagitis Qualified Code(s): K21.9 - Gastro- esophageal reflux disease without esophagitis
[2018-08-11 05:14] VITALS: BP 135/82
[2018-08-11] MEDS: *HR* Heparin 5,000 UNIT/ML VIAL SQ SCH (06:10)
[2018-08-11] MEDS: Budesonide/Formoterol 160/4.5 1 PUFF INH IH SCH (07:49)
[2018-08-11] MEDS: Sucralfate 1 GM TABLET PO SCH ×2 (08:28→10:49)
[2018-08-11] MEDS: Aspirin Enteric Coated 81 MG Tablet PO SCH (08:28)
[2018-08-11] MEDS: Fluticasone Propionate Nasal 50 MCG/SPRAY BOTTLE NS SCH (08:34)
[2018-08-11] MEDS ORDERED: amLODIPine 5 MG TABLET PO SCH (09:00)
[2018-08-11 09:12] LABS: Estimated Average Glucose 120 mg/dl; Hemoglobin A1C 5.8 %
--- NOTE | 2018-08-11 09:55 | Cardiology Consult Note ---
Date of Encounter: 08/11/18 Time of Encounter: 09:52 Assessment and Plan (1) Chest pain Current Visit: Yes Status: Acute Chest pain with negative KIM and negative stress test. Would recommend work up for noncardiac causes. No further cardiac workup needed, can follow up with cardiology as outpt. Qualifiers: Chest pain type: precordial pain Qualified Code(s): R07.2 - Precordial pain Discussion w patient/family: The assessment and plan as outlined above was discussed with the patient and/or family members who expressed understanding and agreement. All questions were answered. Thank you for involving us in the care of your patient. Please call with any questions. History of Present Illness Consult date: 08/11/18 Requesting physician: Abby Rodriguez Consult reason: Chest pain Chief complaint: Chest pain History of present illness: Ms. Betsy Mcallister is a 53 year old female with asthma and ulcers presented with chest pain. Pain wa epigastric and radiated upward. KIM was negative and stress test was completed which was interpreted as negative but with some artifact. Past Med Surg Social Fam HX - Past Medical History Medical history: non-contributory, other Additional medical history: ulcers Psychiatric history: other - Past Surgical History Surgical History: herniorrhaphy - Social History Smoking Status: Never smoker Smokeless Tobacco Status: No Alcohol use: occasionally Drug use: none - Family History Mother Hx Family Cardiac Disorders: Yes (CHF) Hx Family Respiratory Disorders: Yes (COPD) Hx Family Endocrine Disorder: Yes Hx Family Neuromuscular Disorders: Yes (STROKE) Father Hx Family Cardiac Disorders: Yes Hx Family Neurologic Disorders: Yes (STROKE) Medications and Allergies Albuterol Sulfate [Albuterol Inhaler] 2 puff IN Q4H PRN 08/09/18 [History] Aspirin [Adult Aspirin Regimen] 81 mg PO DAILY 08/09/18 [History] Fluticasone Propionate Nasal [Flonase] 1 spray NS DAILY 08/09/18 [History] Fluticasone Propionate [Flovent Hfa] 2 puff IN BID 08/09/18 [History] Fluticasone/Salmeterol [Advair Hfa 230-21 Mcg Inhaler] 2 puff IN BID 08/09/18 [History] Omeprazole [PriLOSEC] 20 mg PO BID 08/09/18 [History] Sucralfate [Carafate] 1 gm PO QID 08/09/18 [History] Tiotropium [place] [Spiriva Respimat] 2 puff IN DAILY 08/09/18 [History] Allergy/AdvReac Type Severity Reaction Status Date / Time No Known Allergies Allergy Verified 08/09/18 10:37 All Systems Review: The remainder of the systems were reviewed and are negative Physical Examination Vital Signs, Last 4 Hours Resp Pulse Ox 08/11/18 08:38 94 08/11/18 07:52 14 95 General: Conversant, No Apparent Distress HEENT: Atraumatic, Normocephaly, Mucus Membranes Moist Neck: No JVD, Normal carotid pulses Cardiac: Reg Rate and Rhythm, Normal S1 and S2, No Murmur Lungs: Normal Breath Sounds, No Wheeze, Rales, Rhonchi Neuro: Alert and responsive, No focal deficits noted Abdomen: Soft, Non-Tender Skin: No rashes noted on visualized skin Musculoskeletal: No Chest Wall Tenderness Extremities: No Clubbing, No Cyanosis, No Edema, Normal Pulses Results 08/10/18 03:18 08/10/18 03:18 Consult Discharge Plan - Plan Referrals: Sae Ruiz MD [Primary Care Provider] -
[2018-08-11] MEDS ORDERED: Tiotropium 18 MCG inhalation IH SCH (10:00)
--- NOTE | 2018-08-11 10:09 | Discharge Summary ---
- NOTES TO OUTPATIENT PROVIDER Notes to Outpatient Provider: follow up with cardiology as OP, follow up with GI as OP. for PCP to follow A1c 5.8- she was counseled on diet and exercise Orders not resulted at time of discharge: Pending orders 08/09/18 11:01 NM po perf SPECT multi [NM] Routine Date of Encounter: 08/11/18 Time of Encounter: 10:05 - Discharge Diagnosis (1) Chest pain Priority: Primary Status: Acute Qualifiers: Chest pain type: precordial pain Qualified Code(s): R07.2 - Precordial pain (2) Reactive airway disease Priority: Secondary Status: Chronic Qualifiers: Asthma severity: unspecified severity Asthma persistence: unspecified Asthma complication type: uncomplicated Qualified Code(s): J45.909 - Unspecified asthma, uncomplicated (3) Obesity (BMI 30-39.9) Priority: Secondary Status: Acute (4) GERD (gastroesophageal reflux disease) Priority: Secondary Status: Acute Qualifiers: Esophagitis presence: without esophagitis Qualified Code(s): K21.9 - Gastro-esophageal reflux disease without esophagitis (5) DVT prophylaxis Priority: Secondary Status: Acute Hospital course: "Ms. Betsy Mcallister is a 53 year old female with past medical history of reactive airway disease, asthma, gastric ulcers. Patient arrived to the emergency department today which chief complaint of chest pain that started at 7 AM when she was getting out of bed. The pain and initially started as epigastric pain. She took her medications for gastric ulcer, but the pain did not relieve. She eventually started getting 7/10 chest pain located sub sternal in the left side of the chest and radiating to her left arm, left jaw. Chest pain was intermittent, sharp/stabbing. Patient received nitroglycerin x3 in ED which slightly relieved her symptoms. She reports no exacerbating symptoms. She denies smoking history. She does report that her brother had a heart attack at age 43. She admits to nausea without vomiting. She denies diarrhea, fevers, chills. She does report intermittent shortness of breath. She denies hematuria, melena, hematochezia" Patient presented with the above presentation. While in the emergency department EKG did not show any ischemic changes. Troponin trended and it was negative 2. Echocardiogram performed, results below. Stress test performed and results below. Cardiology on board and as per above results was thought that her pain was secondary to GI source. She was told to follow-up with her mud engineer as outpatient. She was found to be hypertensive and was started on vacation. Blood pressure cuff was ordered and she is to monitor her blood pressure daily and take Log to primary care physician for adjustment of her medication. A1c was found to be 5.8. She was counseled on diet and nutrition along with weight loss. Stress test 08/10 Nuclear Summary: SPECT myocardial perfusion imaging using [id number] Sestamibi given intravenously was performed at rest and following cardiac stress testing. The resting images were obtained following initial dose of 11.0 mCi. Following stress an additional dose of 34.8 mCi was given at peak exercise or 30 seconds post regadenoson infusion. TTE 08/10- LVEF 60-65%. Normal LV chamber size, wall thickness and function. Normal right ventricular structure and function. Mild tricuspid regurgitation. No pulmonary hypertension. Discharge discussed with: patient, family, nurse, rehabilitation consultant Time spent discussing smoking cessation with patient: more than 10 minutes - Time Spent with Patient Total time spent providing and/or coordinating discharge services: Less than 30 minutes - Discharge Medications Prescriptions: amLODIPine [Norvasc] 5 mg PO DAILY #30 tablet Blood Pressure Test Kit-Medium [Blood Pressure Cuff Monitor] 1 each MC DAILY #1 kit Metoprolol [Lopressor] 12.5 mg PO BID #30 tablet Home Medications: Albuterol Sulfate [Albuterol Inhaler] 2 puff IN Q4H PRN 08/09/18 [History] Aspirin [Adult Aspirin Regimen] 81 mg PO DAILY 08/09/18 [History] Fluticasone Propionate Nasal [Flonase] 1 spray NS DAILY 08/09/18 [History] Fluticasone Propionate [Flovent Hfa] 2 puff IN BID 08/09/18 [History] Fluticasone/Salmeterol [Advair Hfa 230-21 Mcg Inhaler] 2 puff IN BID 08/09/18 [History] Omeprazole [PriLOSEC] 20 mg PO BID 08/09/18 [History] Sucralfate [Carafate] 1 gm PO QID 08/09/18 [History] Tiotropium [place] [Spiriva Respimat] 2 puff IN DAILY 08/09/18 [History] Blood Pressure Test Kit-Medium [Blood Pressure Cuff Monitor] 1 each MC DAILY #1 kit 08/11/18 [Rx] Metoprolol [Lopressor] 12.5 mg PO BID #30 tablet 08/11/18 [Rx] amLODIPine [Norvasc] 5 mg PO DAILY #30 tablet 08/11/18 [Rx] Allergies/Adverse Reactions: Allergy/AdvReac Type Severity Reaction Status Date / Time No Known Allergies Allergy Verified 08/09/18 10:37 Date of admission: 08/09/18 10:22 Primary care physician: Sae Ruiz MD Consults: 08/10/18 14:42 Consult to Cardiology [CONS] Routine Comment: Consulting Provider: [facility] [place] Reason for Consult: 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 - stress test performed on 08/10 was inconclusive Call Completed: No - Constitutional Vitals: Temp Pulse Resp BP Pulse Ox 98.1 F 83 14 135/82 94 08/11/18 05:10 08/11/18 05:10 08/11/18 07:52 08/11/18 05:10 08/11/18 08:38 Exam: General: Patient is alert, oriented, no acute distress, obese Head: atraumatic, normocephalic, Eye: normal appearance, PERRL, no scleral icterus, no conjunctival injection ENT: mucous membranes moist, normal external ear exam Neck: normal inspection, trachea midline, full ROM, no carotid bruits Chest: normal inspection, symmetric chest rise Respiratory: Distant breath sounds secondary to body habitus. Bilateral breath sounds are decreased without wheezing, crackles, or rhonchi. Cardiovascular: Distant heart sounds in her to body habitus, Regular rate and rhythm. s1 and s2 No clicks, rubs, gallops, or murmors. Abdomen: Bowel sounds present normoactive x-4 quadrants. Abdomen is soft, nondistended. no Epigastric tenderness. No guarding or rebound. No organomegaly noted, obese musculoskeletal: Spontaneously moving all extremities. no edema, no calf tenderness Skin: warm, dry, intact. Neuro: Alert and oriented x4. Sensation light touch intact. No focal deficits Psych: Patient's affect is normal - Patient Status Disposition: Home, Self-Care Condition: Good Functional capacity at discharge: independent ambulation Overall status at discharge: patient is progressing back to baseline - Discharge Instructions Follow Up With: Ruiz,Sae N, MD [Primary Care Provider] - - Diet and Activity Activity: increase activity as tolerated Diet: low fat, low cholesterol, low salt diet
== END 2018-08-11 11:12 | disposition home or self-care (01) ==
LOC: EMEROOARM 08:24 → 2NENU 08:24 → SUATTDRO 10:22 → 2NENU 11:35
PROVIDERS: ADMIT Internal Medicine; ATTEND Internal Medicine

== ENCOUNTER 2020-10-10 10:57 | Inpatient (IN) ==
[2020-10-10] MEDS ORDERED: Isovue-370 500 ML BOTTLE IVP ONE (11:09)
[2020-10-10 11:39] LABS: Basophils % 0.2 %; Hematocrit 43.6 % (35.3-44.9); Hemoglobin 14.4 g/dL (11.5-15.4); Immature Granulocytes % 0.3 % (0-4); Lymphocytes # 1.4 K/mcL (0.6-4.6); Lymphocytes % 14.1 %; Mean Corpuscular Volume 81.6 fL (83.0-100.0); Mean Platelet Volume 8.6 fL (9.4-12.4); Monocytes # 0.5 K/mcL (0.0-1.3); Neutrophils # 7.7 K/mcL (1.6-8.9); Platelet Count 448 K/mcL (140-400); Red Blood Count 5.34 M/mcL (3.82-4.97); Red Cell Distribution Width 14.8 % (11.5-14.5); Segmented Neutrophils % 80.4 %; White Blood Count 9.6 K/mcL (4.3-11.1)
[2020-10-10 12:03] LABS: Alanine Aminotransferase 19 Units/L (7-52); Albumin 3.7 g/dL (3.5-5.7); Alkaline Phosphatase 66 Units/L (34-104); Aspartate Amino Transferase 29 Units/L (13-39); BUN/Creatinine Ratio 14 (6-26); Bilirubin,Direct 0.1 mg/dL (0.0-0.2); Bilirubin,Indirect 0.5 mg/dL (0.0-1.0); Bilirubin,Total 0.6 mg/dL (0.3-1.0); Blood Urea Nitrogen 10 mg/dL (6-20); C-Reactive Protein 294 mg/L (Less than 10); Calcium 8.9 mg/dL (8.6-10.3); Carbon Dioxide 26 mEq/L (23-29); Chloride 92 mEq/L (98-107); Globulin 3.8 g/dL (2.4-3.5); Glucose 128 mg/dL (70-105); Lactate Dehydrogenase 278 Units/L (140-271); Magnesium 1.9 mg/dL (1.6-2.6); Osmolality,Calculated 273 (280-300); Potassium 3.1 mEq/L (3.5-5.1); Sodium 131 mEq/L (136-145); Total Protein 7.5 g/dL (6.4-8.9); Troponin I < 0.03 ng/mL (< 0.04); eGFR For African Americans > 60 (> 60); eGFR For Non-African Americans > 60 (> 60)
[2020-10-10 12:19] LABS: INR 1.3; Prothrombin Time 14.4 Seconds (9.4-12.1)
[2020-10-10 12:21] LABS: Ferritin 779 ng/mL (10-120)
[2020-10-10 12:21] LABS: Activated Partial Thrombo Time 28.1 Seconds (26.0-36.0)
[2020-10-10] MEDS ORDERED: Azithromycin 500 MG in 0.9 % Sodium Chloride 250 ML IVPB ONE (12:42)
[2020-10-10] MEDS ORDERED: cefTRIAXone 1,000 MG in 0.9 % Sodium Chloride Mini Bag 100 ML IVPB ONE (12:42)
[2020-10-10] MEDS ORDERED: Naloxone 0.4 MG/ML INJ IVP PRN (13:06)
[2020-10-10] MEDS ORDERED: Ipratropium 1 PUFF INHALER IH PRN (13:38)
[2020-10-10] MEDS: Budesonide Neb 0.25 MG/2 ML IH SCH (21:53)
[2020-10-10] MEDS: Budesonide/Formoterol 160/4.5 1 PUFF INH IH SCH (21:57)
[2020-10-11 05:29] LABS: Hematocrit 40.9 % (35.3-44.9); Hemoglobin 13.5 g/dL (11.5-15.4); Immature Granulocytes % 0.5 % (0-4); Lymphocytes # 0.9 K/mcL (0.6-4.6); Lymphocytes % 21.2 %; Mean Corpuscular Hemoglobin 26.4 pg (28.0-33.3); Mean Platelet Volume 8.7 fL (9.4-12.4); Monocytes # 0.4 K/mcL (0.0-1.3); Monocytes % 9.2 %; Platelet Count 478 K/mcL (140-400); Red Blood Count 5.11 M/mcL (3.82-4.97); Red Cell Distribution Width 14.9 % (11.5-14.5); Segmented Neutrophils % 69.1 %
[2020-10-11 05:34] LABS: White Blood Count 4.4 K/mcL (4.3-11.1)
[2020-10-11 05:38] LABS: BUN/Creatinine Ratio 17 (6-26); Blood Urea Nitrogen 9 mg/dL (6-20); Calcium 8.8 mg/dL (8.6-10.3); Carbon Dioxide 26 mEq/L (23-29); Chloride 97 mEq/L (98-107); Glucose 151 mg/dL (70-105); Osmolality,Calculated 278 (280-300); Potassium 3.4 mEq/L (3.5-5.1); Sodium 133 mEq/L (136-145); eGFR For African Americans > 60 (> 60); eGFR For Non-African Americans > 60 (> 60)
[2020-10-11] MEDS: *HR* Enoxaparin 40 MG/0.4 ML SYRINGE SQ SCH (05:40)
[2020-10-11 06:00] LABS: Platelet Estimate Normal (Normal)
[2020-10-11] MEDS ORDERED: cefTRIAXone 1,000 MG in 0.9 % Sodium Chloride Mini Bag 100 ML IVPB SCH (09:00)
[2020-10-11] MEDS: Furosemide 20 MG/2 ML VIAL IVP SCH (09:53)
[2020-10-11] MEDS: Azithromycin 500 MG in 0.9 % Sodium Chloride 250 ML IVPB SCH (10:06)
[2020-10-11] MEDS ORDERED: cefTRIAXone 1,000 MG in Water for inj. (sterile) 10 ML IVP SCH (10:45)
[2020-10-11] MEDS: Ipratropium 1 PUFF INHALER IH SCH ×5 (12:09→23:26)
[2020-10-11] MEDS: Budesonide Neb 0.25 MG/2 ML IH SCH (12:10)
[2020-10-11] MEDS: Budesonide/Formoterol 160/4.5 1 PUFF INH IH SCH ×2 (12:10→20:31)
[2020-10-12] MEDS: Ipratropium 1 PUFF INHALER IH SCH ×6 (04:11→23:38)
[2020-10-12] MEDS: *HR* Enoxaparin 40 MG/0.4 ML SYRINGE SQ SCH (05:10)
[2020-10-12 06:07] LABS: Hematocrit 40.6 % (35.3-44.9); Hemoglobin 13.2 g/dL (11.5-15.4); Immature Granulocytes % 0.4 % (0-4); Lymphocytes # 1.2 K/mcL (0.6-4.6); Lymphocytes % 15.9 %; Mean Corpuscular HGB Conc 32.5 g/dL (31.6-35.5); Mean Corpuscular Hemoglobin 26.7 pg (28.0-33.3); Mean Corpuscular Volume 82.2 fL (83.0-100.0); Mean Platelet Volume 8.8 fL (9.4-12.4); Monocytes # 0.6 K/mcL (0.0-1.3); Monocytes % 8.4 %; Platelet Count 549 K/mcL (140-400); Red Blood Count 4.94 M/mcL (3.82-4.97); Red Cell Distribution Width 15.1 % (11.5-14.5); Segmented Neutrophils % 75.3 %
[2020-10-12 06:17] LABS: Neutrophils # 5.7 K/mcL (1.6-8.9); White Blood Count 7.5 K/mcL (4.3-11.1)
[2020-10-12 06:43] LABS: Alanine Aminotransferase 14 Units/L (7-52); Albumin 3.5 g/dL (3.5-5.7); Albumin/Globulin Ratio 1.1 (1.1-2.2); Alkaline Phosphatase 62 Units/L (34-104); Aspartate Amino Transferase 15 Units/L (13-39); BUN/Creatinine Ratio 23 (6-26); Bilirubin,Total 0.5 mg/dL (0.3-1.0); Blood Urea Nitrogen 12 mg/dL (6-20); Calcium 8.7 mg/dL (8.6-10.3); Carbon Dioxide 26 mEq/L (23-29); Chloride 96 mEq/L (98-107); Globulin 3.3 g/dL (2.4-3.5); Glucose 122 mg/dL (70-105); Lactate Dehydrogenase 248 Units/L (140-271); Osmolality,Calculated 279 (280-300); Sodium 134 mEq/L (136-145); Total Protein 6.8 g/dL (6.4-8.9); eGFR For African Americans > 60 (> 60); eGFR For Non-African Americans > 60 (> 60)
[2020-10-12 06:47] LABS: Ferritin 582 ng/mL (10-120)
[2020-10-12] MEDS: Budesonide/Formoterol 160/4.5 1 PUFF INH IH SCH ×2 (07:33→19:37)
[2020-10-12] MEDS ORDERED: Potassium Chloride 40 MEQ, Lidocaine 1% 2 ML in 0.9 % Sodium Chloride 500 ML IVPB ONE (07:44)
[2020-10-12] MEDS: Furosemide 20 MG/2 ML VIAL IVP SCH (08:51)
[2020-10-12] MEDS: cefTRIAXone 1,000 MG in Water for inj. (sterile) 10 ML IVP SCH (08:52)
[2020-10-12] MEDS: Azithromycin 500 MG in 0.9 % Sodium Chloride 250 ML IVPB SCH (08:52)
[2020-10-13] MEDS: *HR* LORazepam 0.5 MG TABLET PO PRN (00:08)
[2020-10-13] MEDS: Ipratropium 1 PUFF INHALER IH SCH ×6 (03:41→22:56)
[2020-10-13] MEDS: *HR* Enoxaparin 40 MG/0.4 ML SYRINGE SQ SCH (05:30)
[2020-10-13 05:58] LABS: Basophils % 0.1 %; Eosinophils % 0.2 %; Hematocrit 38.8 % (35.3-44.9); Hemoglobin 12.5 g/dL (11.5-15.4); Immature Granulocytes % 0.4 % (0-4); Lymphocytes # 1.4 K/mcL (0.6-4.6); Lymphocytes % 17.7 %; Mean Corpuscular HGB Conc 32.2 g/dL (31.6-35.5); Mean Corpuscular Hemoglobin 26.8 pg (28.0-33.3); Mean Corpuscular Volume 83.1 fL (83.0-100.0); Mean Platelet Volume 8.7 fL (9.4-12.4); Monocytes # 0.7 K/mcL (0.0-1.3); Monocytes % 8.7 %; Neutrophils # 5.9 K/mcL (1.6-8.9); Platelet Count 568 K/mcL (140-400); Red Blood Count 4.67 M/mcL (3.82-4.97); Red Cell Distribution Width 15.3 % (11.5-14.5); Segmented Neutrophils % 72.9 %; White Blood Count 8.1 K/mcL (4.3-11.1)
[2020-10-13 06:20] LABS: Alanine Aminotransferase 13 Units/L (7-52); Albumin 3.4 g/dL (3.5-5.7); Alkaline Phosphatase 61 Units/L (34-104); Aspartate Amino Transferase 10 Units/L (13-39); BUN/Creatinine Ratio 23 (6-26); Bilirubin,Total 0.5 mg/dL (0.3-1.0); Blood Urea Nitrogen 12 mg/dL (6-20); Calcium 8.8 mg/dL (8.6-10.3); Carbon Dioxide 28 mEq/L (23-29); Chloride 97 mEq/L (98-107); Globulin 3.5 g/dL (2.4-3.5); Glucose 103 mg/dL (70-105); Osmolality,Calculated 280 (280-300); Potassium 3.4 mEq/L (3.5-5.1); Sodium 135 mEq/L (136-145); Total Protein 6.9 g/dL (6.4-8.9); eGFR For African Americans > 60 (> 60); eGFR For Non-African Americans > 60 (> 60)
[2020-10-13] MEDS: Azithromycin 500 MG in 0.9 % Sodium Chloride 250 ML IVPB SCH (07:35)
[2020-10-13] MEDS: cefTRIAXone 1,000 MG in Water for inj. (sterile) 10 ML IVP SCH (07:36)
[2020-10-13] MEDS: Furosemide 20 MG/2 ML VIAL IVP SCH (07:36)
[2020-10-13] MEDS: Budesonide/Formoterol 160/4.5 1 PUFF INH IH SCH ×2 (07:43→19:52)
[2020-10-13] MEDS ORDERED: Saline Nasal Spray 44 ML BOTTLE NS PRN (18:24)
[2020-10-13] MEDS: Artificial Tears SOLN 15 ML BOTTLE BOTH EYES SCH (20:12)
[2020-10-14] MEDS: Ipratropium 1 PUFF INHALER IH SCH ×6 (03:52→23:43)
[2020-10-14] MEDS: *HR* Enoxaparin 40 MG/0.4 ML SYRINGE SQ SCH (05:28)
[2020-10-14 05:46] LABS: Hemoglobin 12.8 g/dL (11.5-15.4); Mean Corpuscular Hemoglobin 26.7 pg (28.0-33.3); Mean Corpuscular Volume 83.5 fL (83.0-100.0); Mean Platelet Volume 8.4 fL (9.4-12.4); Platelet Count 587 K/mcL (140-400); Red Blood Count 4.79 M/mcL (3.82-4.97); Red Cell Distribution Width 15.3 % (11.5-14.5); White Blood Count 7.4 K/mcL (4.3-11.1)
[2020-10-14 06:14] LABS: BUN/Creatinine Ratio 27 (6-26); Blood Urea Nitrogen 13 mg/dL (6-20); Calcium 8.8 mg/dL (8.6-10.3); Carbon Dioxide 26 mEq/L (23-29); Chloride 99 mEq/L (98-107); Glucose 100 mg/dL (70-105); Lactate Dehydrogenase 172 Units/L (140-271); Magnesium 1.9 mg/dL (1.6-2.6); Osmolality,Calculated 280 (280-300); Phosphorous 2.7 mg/dL (2.7-4.5); Potassium 3.8 mEq/L (3.5-5.1); Sodium 135 mEq/L (136-145); eGFR For African Americans > 60 (> 60); eGFR For Non-African Americans > 60 (> 60)
[2020-10-14 06:23] LABS: Ferritin 341 ng/mL (10-120)
[2020-10-14] MEDS: Budesonide/Formoterol 160/4.5 1 PUFF INH IH SCH ×2 (08:07→19:41)
[2020-10-14] MEDS: Artificial Tears SOLN 15 ML BOTTLE BOTH EYES SCH ×2 (09:04→20:34)
[2020-10-14] MEDS: cefTRIAXone 1,000 MG in Water for inj. (sterile) 10 ML IVP SCH (09:04)
[2020-10-14] MEDS: Multivit/Ca/Min/Fe/FA 1 TAB TABLET PO SCH (09:04)
[2020-10-14] MEDS: Furosemide 20 MG/2 ML VIAL IVP SCH (09:05)
[2020-10-14] MEDS: Azithromycin 500 MG in 0.9 % Sodium Chloride 250 ML IVPB SCH (09:09)
[2020-10-14 09:25] LABS: C-Reactive Protein 53 mg/L (Less than 10)
[2020-10-14] MEDS: Acetaminophen 325 MG TABLET PO PRN (09:34)
[2020-10-14] MEDS: *HR* LORazepam 0.5 MG TABLET PO PRN (20:33)
[2020-10-14] MEDS: Melatonin 3 MG TABLET PO PRN (20:34)
[2020-10-15 01:46] LABS: Hematocrit 39.4 % (35.3-44.9); Hemoglobin 12.7 g/dL (11.5-15.4); Mean Corpuscular HGB Conc 32.2 g/dL (31.6-35.5); Mean Corpuscular Hemoglobin 26.3 pg (28.0-33.3); Mean Corpuscular Volume 81.6 fL (83.0-100.0); Mean Platelet Volume 8.4 fL (9.4-12.4); Platelet Count 637 K/mcL (140-400); Red Blood Count 4.83 M/mcL (3.82-4.97); Red Cell Distribution Width 15.3 % (11.5-14.5); White Blood Count 7.5 K/mcL (4.3-11.1)
[2020-10-15 02:10] LABS: BUN/Creatinine Ratio 27 (6-26); Blood Urea Nitrogen 13 mg/dL (6-20); C-Reactive Protein 67 mg/L (Less than 10); Calcium 9.1 mg/dL (8.6-10.3); Carbon Dioxide 26 mEq/L (23-29); Chloride 99 mEq/L (98-107); Glucose 118 mg/dL (70-105); Lactate Dehydrogenase 156 Units/L (140-271); Magnesium 2.1 mg/dL (1.6-2.6); Osmolality,Calculated 283 (280-300); Potassium 3.6 mEq/L (3.5-5.1); Sodium 136 mEq/L (136-145); eGFR For African Americans > 60 (> 60); eGFR For Non-African Americans > 60 (> 60)
[2020-10-15 02:24] LABS: Ferritin 339 ng/mL (10-120)
[2020-10-15] MEDS: Ipratropium 1 PUFF INHALER IH SCH ×6 (03:32→23:10)
[2020-10-15] MEDS: *HR* Enoxaparin 40 MG/0.4 ML SYRINGE SQ SCH (04:55)
[2020-10-15] MEDS: Azithromycin 500 MG in 0.9 % Sodium Chloride 250 ML IVPB SCH (08:20)
[2020-10-15] MEDS: Furosemide 20 MG/2 ML VIAL IVP SCH (08:20)
[2020-10-15] MEDS: cefTRIAXone 1,000 MG in Water for inj. (sterile) 10 ML IVP SCH (08:20)
[2020-10-15] MEDS: Multivit/Ca/Min/Fe/FA 1 TAB TABLET PO SCH (08:21)
[2020-10-15] MEDS: Artificial Tears SOLN 15 ML BOTTLE BOTH EYES SCH ×2 (08:46→21:53)
[2020-10-15] MEDS: Budesonide/Formoterol 160/4.5 1 PUFF INH IH SCH ×2 (09:48→19:46)
[2020-10-15] MEDS: Melatonin 3 MG TABLET PO PRN (20:39)
[2020-10-15] MEDS: *HR* LORazepam 0.5 MG TABLET PO PRN (20:39)
[2020-10-15] MEDS: Acetaminophen 325 MG TABLET PO PRN (20:40)
[2020-10-16] MEDS: Ipratropium 1 PUFF INHALER IH SCH ×6 (03:38→23:07)
[2020-10-16] MEDS: *HR* Enoxaparin 40 MG/0.4 ML SYRINGE SQ SCH ×2 (04:29→07:29)
[2020-10-16 06:14] LABS: Hematocrit 39.6 % (35.3-44.9); Hemoglobin 12.6 g/dL (11.5-15.4); Mean Corpuscular HGB Conc 31.8 g/dL (31.6-35.5); Mean Corpuscular Hemoglobin 26.5 pg (28.0-33.3); Mean Corpuscular Volume 83.4 fL (83.0-100.0); Mean Platelet Volume 8.4 fL (9.4-12.4); Platelet Count 724 K/mcL (140-400); Red Blood Count 4.75 M/mcL (3.82-4.97); Red Cell Distribution Width 15.3 % (11.5-14.5); White Blood Count 7.2 K/mcL (4.3-11.1)
[2020-10-16 06:22] LABS: BUN/Creatinine Ratio 32 (6-26); Blood Urea Nitrogen 18 mg/dL (6-20); C-Reactive Protein 49 mg/L (Less than 10); Calcium 9.1 mg/dL (8.6-10.3); Carbon Dioxide 25 mEq/L (23-29); Chloride 98 mEq/L (98-107); Ferritin 294 ng/mL (10-120); Glucose 108 mg/dL (70-105); Lactate Dehydrogenase 204 Units/L (140-271); Magnesium 2.1 mg/dL (1.6-2.6); Osmolality,Calculated 284 (280-300); Phosphorous 4.5 mg/dL (2.7-4.5); Potassium 3.8 mEq/L (3.5-5.1); Sodium 136 mEq/L (136-145); eGFR For African Americans > 60 (> 60); eGFR For Non-African Americans > 60 (> 60)
[2020-10-16] MEDS: Multivit/Ca/Min/Fe/FA 1 TAB TABLET PO SCH (09:34)
[2020-10-16] MEDS: Furosemide 20 MG/2 ML VIAL IVP SCH (09:36)
[2020-10-16] MEDS: Artificial Tears SOLN 15 ML BOTTLE BOTH EYES SCH ×2 (10:09→19:44)
[2020-10-16] MEDS: Budesonide/Formoterol 160/4.5 1 PUFF INH IH SCH ×2 (11:04→19:53)
[2020-10-17 02:05] LABS: Basophils % 0.3 %; Eosinophils # 0.2 K/mcL (0.0-0.6); Hematocrit 39.7 % (35.3-44.9); Hemoglobin 12.8 g/dL (11.5-15.4); Immature Granulocytes % 0.7 % (0-4); Lymphocytes # 1.4 K/mcL (0.6-4.6); Lymphocytes % 17.9 %; Mean Corpuscular HGB Conc 32.2 g/dL (31.6-35.5); Mean Corpuscular Hemoglobin 26.6 pg (28.0-33.3); Mean Corpuscular Volume 82.4 fL (83.0-100.0); Mean Platelet Volume 8.4 fL (9.4-12.4); Monocytes # 0.6 K/mcL (0.0-1.3); Monocytes % 7.8 %; Neutrophils # 5.4 K/mcL (1.6-8.9); Platelet Count 735 K/mcL (140-400); Red Blood Count 4.82 M/mcL (3.82-4.97); Red Cell Distribution Width 15.2 % (11.5-14.5); Segmented Neutrophils % 71.3 %; White Blood Count 7.6 K/mcL (4.3-11.1)
[2020-10-17 02:27] LABS: BUN/Creatinine Ratio 29 (6-26); Blood Urea Nitrogen 15 mg/dL (6-20); C-Reactive Protein 33 mg/L (Less than 10); Calcium 9.3 mg/dL (8.6-10.3); Carbon Dioxide 26 mEq/L (23-29); Chloride 97 mEq/L (98-107); Glucose 121 mg/dL (70-105); Lactate Dehydrogenase 141 Units/L (140-271); Magnesium 2.1 mg/dL (1.6-2.6); Osmolality,Calculated 280 (280-300); Phosphorous 3.5 mg/dL (2.7-4.5); Potassium 3.8 mEq/L (3.5-5.1); Sodium 134 mEq/L (136-145); eGFR For African Americans > 60 (> 60); eGFR For Non-African Americans > 60 (> 60)
[2020-10-17 02:44] LABS: Ferritin 351 ng/mL (10-120)
[2020-10-17] MEDS: Ipratropium 1 PUFF INHALER IH SCH ×5 (03:24→22:52)
[2020-10-17] MEDS: *HR* Enoxaparin 40 MG/0.4 ML SYRINGE SQ SCH (05:48)
[2020-10-17] MEDS: Multivit/Ca/Min/Fe/FA 1 TAB TABLET PO SCH (07:57)
[2020-10-17] MEDS: Furosemide 20 MG/2 ML VIAL IVP SCH (08:01)
[2020-10-17] MEDS: Artificial Tears SOLN 15 ML BOTTLE BOTH EYES SCH ×2 (08:03→19:57)
[2020-10-17] MEDS: Budesonide/Formoterol 160/4.5 1 PUFF INH IH SCH ×2 (08:30→22:51)
[2020-10-17] MEDS: Acetaminophen 325 MG TABLET PO PRN (19:58)
[2020-10-18] MEDS: Ipratropium 1 PUFF INHALER IH SCH ×2 (03:17→10:30)
[2020-10-18] MEDS: *HR* Enoxaparin 40 MG/0.4 ML SYRINGE SQ SCH (05:09)
[2020-10-18 06:45] LABS: Basophils % 0.4 %; Eosinophils # 0.2 K/mcL (0.0-0.6); Eosinophils % 2.1 %; Hematocrit 39.6 % (35.3-44.9); Hemoglobin 12.8 g/dL (11.5-15.4); Immature Granulocytes % 0.8 % (0-4); Lymphocytes # 1.4 K/mcL (0.6-4.6); Lymphocytes % 19.6 %; Mean Corpuscular HGB Conc 32.3 g/dL (31.6-35.5); Mean Corpuscular Hemoglobin 27.2 pg (28.0-33.3); Mean Corpuscular Volume 84.3 fL (83.0-100.0); Mean Platelet Volume 8.3 fL (9.4-12.4); Monocytes # 0.6 K/mcL (0.0-1.3); Monocytes % 8.5 %; Platelet Count 680 K/mcL (140-400); Red Cell Distribution Width 15.2 % (11.5-14.5); Segmented Neutrophils % 68.6 %; White Blood Count 7.2 K/mcL (4.3-11.1)
[2020-10-18 07:35] LABS: BUN/Creatinine Ratio 38 (6-26); Blood Urea Nitrogen 20 mg/dL (6-20); Calcium 9.2 mg/dL (8.6-10.3); Carbon Dioxide 26 mEq/L (23-29); Chloride 98 mEq/L (98-107); Glucose 111 mg/dL (70-105); Lactate Dehydrogenase 141 Units/L (140-271); Magnesium 2.2 mg/dL (1.6-2.6); Osmolality,Calculated 283 (280-300); Phosphorous 3.6 mg/dL (2.7-4.5); Potassium 3.6 mEq/L (3.5-5.1); Sodium 135 mEq/L (136-145); eGFR For African Americans > 60 (> 60); eGFR For Non-African Americans > 60 (> 60)
[2020-10-18 07:39] LABS: Ferritin 352 ng/mL (10-120)
[2020-10-18] MEDS: Multivit/Ca/Min/Fe/FA 1 TAB TABLET PO SCH (08:17)
[2020-10-18] MEDS: Artificial Tears SOLN 15 ML BOTTLE BOTH EYES SCH (08:23)
[2020-10-18 08:34] VITALS: BP 110/70
[2020-10-18] MEDS ORDERED: Furosemide 20 MG/2 ML VIAL IVP SCH (09:00)
[2020-10-18 10:11] LABS: C-Reactive Protein 17 mg/L (Less than 10)
[2020-10-18] MEDS: Budesonide/Formoterol 160/4.5 1 PUFF INH IH SCH (10:30)
== END 2020-10-18 17:00 | disposition home or self-care (01) | DRG 137 ==
LOC: 3BNU 10:57 → EMEROOARM 10:57 → 3BNU 12:55 → SUATTDRO 10-11 16:09
PROVIDERS: ADMIT Internal Medicine; ATTEND Internal Medicine